=== PATIENT | female | born 1940 | race African-American/Black ===

== ENCOUNTER 2016-08-31 18:55 | Inpatient (IN) | payer OTHER ==
[~2016-08-31] VITALS: Ht 157.5 cm; Wt 105.2 kg
[~2016-08-31 18:55] MED LIST: ALB5IS NEB; ASPI81TA13 PO; CAR3125T PO; CLOP75TA28 PO; FURO20TA PO; Ipratropium Bromide NEB; LIS10T PO; METF-312 PO; NITR0.4S29 SL; SIMV-8 PO; SPIR25TA89 PO
[2016-08-31] MEDS ORDERED: ACETAMINOPHEN 500 MG TAB PO PRN (20:00)
[2016-08-31] MEDS ORDERED: DEXTROSE (50%) 50ML SYRG IV PRN (20:00)
[2016-08-31] MEDS ORDERED: NITROGLYCERIN 0.4 MG SL TAB SL PRN (20:00)
[2016-08-31] MEDS ORDERED: HYDROcodone-ACET 5/325MG TAB PO PRN (20:00)
[2016-08-31] MEDS ORDERED: LORazepam 2MG/ML-1ML VIAL IV PRN (20:00)
[2016-08-31] MEDS ORDERED: PROMETHAZINE W/CODEINE 5 ML ORAL SYRUP PO PRN (20:00)
[2016-08-31] MEDS ORDERED: ENOXAPARIN SOD 40 MG/0.4 ML SYRINGE SC ONE (20:00)
[2016-08-31] MEDS ORDERED: MORPHINE SULF INJ 2 MG/ML SYRINGE 1ML IV PRN ×2 (20:00)
[2016-08-31] MEDS ORDERED: PROMETHAZINE HCL 25 MG/ML 1ML IV PRN (20:00)
[2016-08-31] MEDS ORDERED: ASPirin 81 mg TAB PO ONE (20:15)
[2016-08-31 22:00] VITALS: BP 156/78
[2016-08-31] MEDS: InsuLIN REG 1unit/0.01ml Soln (100units/ml) SC SCH (22:00)
[2016-08-31] MEDS: ATORVASTATIN 20 MG TAB PO SCH (22:11)
[2016-08-31] MEDS: ACCU-CHEK COMFORT CURVE STRIP VI SCH (22:11)
[2016-08-31] MEDS: CARVEDILOL 12.5 MG TAB PO SCH (22:11)
[2016-08-31] MEDS: TEMAZEPAM 15 MG CAP PO PRN (23:25)
[2016-08-31 23:33] VITALS: BP 167/79
[2016-09-01 05:03] VITALS: BP 142/70
[2016-09-01 05:55] LABS: Basophils # (auto) 0 uL; Basophils % (auto) 0.4 % (0.0-2.0); Eosinophils # (auto) 0.1 uL; Eosinophils % (auto) 2.3 % (0.0-7.0); Hematocrit 37.9 % (36.0-46.0); Hemoglobin 12.3 g/dL (12.2-16.2); Lymphocytes # (auto) 2.3 uL; Lymphocytes % (auto) 42.9 % (10.0-50.0); Mean Corpuscular Hemoglobin 31.9 pg (28.0-32.0); Mean Corpuscular Hgb Conc. 32.5 g/dL (32.0-36.0); Mean Corpuscular Volume 98.1 fL (80.0-100.0); Mean Platelet Volume 10.5 fL (7.4-10.4); Monocytes # (auto) 0.5 uL; Monocytes % (auto) 8.5 % (0.0-12.0); Neutrophils # (auto) 2.4 uL; Neutrophils % (auto) 45.9 % (37.0-80.0); Platelet Count (auto) 161 10^3/uL (140-450); Red Cell Distribution Width 14.3 % (11.6-16.0); White Blood Cell 5.3 10^3/uL (4.4-10.8)
[2016-09-01] MEDS: ALBUTEROL SULF 2.5 MG/0.5ML(0.5%) NEB SOLN NEB SCH ×4 (06:00→23:40)
[2016-09-01] MEDS: IPRATROPIUM BROM 0.5 MG/2.5ML INH SOL NEB SCH ×4 (06:00→23:40)
[2016-09-01 06:41] LABS: Albumin 2.9 g/dL (3.4-5.0); BUN/Creatinine Ratio 32.1; Bilirubin, Total 0.6 mg/dL (0.2-1.0); Calcium 8.5 mg/dL (8.5-10.1)
[2016-09-01] MEDS: ACCU-CHEK COMFORT CURVE STRIP VI SCH ×4 (06:44→22:40)
[2016-09-01] MEDS: InsuLIN REG 1unit/0.01ml Soln (100units/ml) SC SCH ×4 (06:44→22:00)
[2016-09-01 09:10] VITALS: BP 127/69
[2016-09-01] MEDS: PANTOPRAZOLE 40 MG TAB PO SCH (09:23)
[2016-09-01] MEDS: LISINOPRIL 20 MG TAB PO SCH (09:24)
[2016-09-01] MEDS: CARVEDILOL 12.5 MG TAB PO SCH ×2 (09:24→22:39)
[2016-09-01] MEDS: ASPirin 81 mg TAB PO SCH (09:24)
[2016-09-01 13:00] VITALS: BP_SYST 147; BP_SYST 98; BP_DIAS 52; BP_DIAS 74
[2016-09-01 17:00] VITALS: BP 154/63
[2016-09-01] MEDS ORDERED: ENOXAPARIN SOD 40 MG/0.4 ML SYRINGE SC SCH (20:00)
[2016-09-01 22:00] VITALS: BP 144/52
[2016-09-01] MEDS: ATORVASTATIN 20 MG TAB PO SCH (22:39)
[2016-09-02 05:37] VITALS: BP 142/75
[2016-09-02] MEDS: ACCU-CHEK COMFORT CURVE STRIP VI SCH ×4 (06:34→21:46)
[2016-09-02] MEDS: InsuLIN REG 1unit/0.01ml Soln (100units/ml) SC SCH ×4 (06:35→21:46)
[2016-09-02] MEDS: ALBUTEROL SULF 2.5 MG/0.5ML(0.5%) NEB SOLN NEB SCH ×3 (07:11→18:29)
[2016-09-02] MEDS: IPRATROPIUM BROM 0.5 MG/2.5ML INH SOL NEB SCH ×3 (07:12→18:29)
[2016-09-02 08:32] VITALS: BP 161/68
[2016-09-02] MEDS: PANTOPRAZOLE 40 MG TAB PO SCH (09:57)
[2016-09-02] MEDS: ENOXAPARIN SOD 40 MG/0.4 ML SYRINGE SC SCH (09:57)
[2016-09-02] MEDS: CARVEDILOL 12.5 MG TAB PO SCH ×2 (09:57→21:11)
[2016-09-02] MEDS: LISINOPRIL 20 MG TAB PO SCH (09:57)
[2016-09-02] MEDS: ASPirin 81 mg TAB PO SCH (09:58)
[2016-09-02 12:24] VITALS: BP 136/50
[2016-09-02 16:18] VITALS: BP 142/90
[2016-09-02] MEDS: ATORVASTATIN 20 MG TAB PO SCH (21:11)
[2016-09-02] MEDS: TEMAZEPAM 15 MG CAP PO PRN (21:47)
[2016-09-02 22:00] VITALS: BP 183/68
[2016-09-03 05:44] VITALS: BP 141/65
[2016-09-03 05:50] LABS: Basophils # (auto) 0 uL; Basophils % (auto) 0.5 % (0.0-2.0); Eosinophils # (auto) 0.1 uL; Eosinophils % (auto) 3.1 % (0.0-7.0); Hematocrit 35.2 % (36.0-46.0); Hemoglobin 11.5 g/dL (12.2-16.2); Mean Corpuscular Hemoglobin 31.8 pg (28.0-32.0); Mean Corpuscular Hgb Conc. 32.6 g/dL (32.0-36.0); Mean Corpuscular Volume 97.3 fL (80.0-100.0); Mean Platelet Volume 10.1 fL (7.4-10.4); Monocytes # (auto) 0.4 uL; Monocytes % (auto) 7.9 % (0.0-12.0); Neutrophils # (auto) 2.2 uL; Neutrophils % (auto) 46.5 % (37.0-80.0); Platelet Count (auto) 153 10^3/uL (140-450); Red Cell Distribution Width 14.2 % (11.6-16.0); White Blood Cell 4.7 10^3/uL (4.4-10.8)
[2016-09-03 06:02] LABS: INR 1.06 (0.9-1.15); Prothrombin Time 10.9 sec (9.37-12.3)
[2016-09-03 06:06] LABS: BUN/Creatinine Ratio 20.4; Calcium 8.1 mg/dL (8.5-10.1); Magnesium 2.4 mg/dL (1.6-2.6)
[2016-09-03] MEDS: ALBUTEROL SULF 2.5 MG/0.5ML(0.5%) NEB SOLN NEB SCH ×4 (06:21→18:11)
[2016-09-03] MEDS: IPRATROPIUM BROM 0.5 MG/2.5ML INH SOL NEB SCH ×4 (06:21→18:11)
[2016-09-03] MEDS: ACCU-CHEK COMFORT CURVE STRIP VI SCH ×4 (06:29→21:34)
[2016-09-03] MEDS: InsuLIN REG 1unit/0.01ml Soln (100units/ml) SC SCH ×4 (06:33→21:52)
[2016-09-03 09:10] VITALS: BP 157/70
[2016-09-03] MEDS: ENOXAPARIN SOD 40 MG/0.4 ML SYRINGE SC SCH (10:22)
[2016-09-03] MEDS: ASPirin 81 mg TAB PO SCH (10:23)
[2016-09-03] MEDS: LISINOPRIL 20 MG TAB PO SCH (10:23)
[2016-09-03] MEDS: PANTOPRAZOLE 40 MG TAB PO SCH (10:23)
[2016-09-03] MEDS: CARVEDILOL 12.5 MG TAB PO SCH ×2 (10:23→21:33)
[2016-09-03] MEDS ORDERED: LISI-646 PO ×2 (11:31→11:33)
[2016-09-03 12:18] VITALS: BP 141/66
[2016-09-03 17:21] VITALS: BP 137/95
[2016-09-03 21:08] VITALS: BP 137/95
[2016-09-03] MEDS: ATORVASTATIN 20 MG TAB PO SCH (21:34)
[2016-09-03 21:50] VITALS: BP 174/72
[2016-09-04] MEDS: ALBUTEROL SULF 2.5 MG/0.5ML(0.5%) NEB SOLN NEB SCH ×5 (00:24→23:40)
[2016-09-04] MEDS: IPRATROPIUM BROM 0.5 MG/2.5ML INH SOL NEB SCH ×5 (00:24→23:40)
[2016-09-04 05:00] VITALS: BP 143/60
[2016-09-04 06:03] LABS: Basophils # (auto) 0 uL; Basophils % (auto) 0.4 % (0.0-2.0); Eosinophils # (auto) 0.1 uL; Eosinophils % (auto) 2.8 % (0.0-7.0); Hematocrit 34.9 % (36.0-46.0); Hemoglobin 11.5 g/dL (12.2-16.2); Lymphocytes # (auto) 1.8 uL; Lymphocytes % (auto) 35.2 % (10.0-50.0); Mean Corpuscular Hemoglobin 31.9 pg (28.0-32.0); Mean Corpuscular Hgb Conc. 32.9 g/dL (32.0-36.0); Mean Platelet Volume 10.2 fL (7.4-10.4); Monocytes # (auto) 0.4 uL; Monocytes % (auto) 8.2 % (0.0-12.0); Neutrophils # (auto) 2.7 uL; Neutrophils % (auto) 53.4 % (37.0-80.0); Platelet Count (auto) 148 10^3/uL (140-450); Red Cell Distribution Width 14.2 % (11.6-16.0)
[2016-09-04] MEDS: InsuLIN REG 1unit/0.01ml Soln (100units/ml) SC SCH ×4 (06:04→22:00)
[2016-09-04] MEDS: ACCU-CHEK COMFORT CURVE STRIP VI SCH ×4 (06:04→22:00)
[2016-09-04 06:12] LABS: BUN/Creatinine Ratio 20.8; Calcium 8.2 mg/dL (8.5-10.1); Magnesium 2.5 mg/dL (1.6-2.6); Potassium 4.2 mmol/L (3.5-5.1)
[2016-09-04 06:19] LABS: INR 1.06 (0.9-1.15); Prothrombin Time 10.9 sec (9.37-12.3)
[2016-09-04 09:15] VITALS: BP 147/69
[2016-09-04] MEDS: ENOXAPARIN SOD 40 MG/0.4 ML SYRINGE SC SCH (09:56)
[2016-09-04] MEDS: PANTOPRAZOLE 40 MG TAB PO SCH (09:57)
[2016-09-04] MEDS: CARVEDILOL 12.5 MG TAB PO SCH ×2 (09:57→22:32)
[2016-09-04] MEDS: ASPirin 81 mg TAB PO SCH (09:58)
[2016-09-04] MEDS: LISINOPRIL 20 MG TAB PO SCH (09:58)
[2016-09-04 11:36] LABS: Cholesterol 141 mg/dL (<200); HDL Cholesterol 41 mg/dL (40-59); LDL Cholesterol 93 mg/dL (<100); Triglycerides 102 mg/dL (<150)
[2016-09-04 12:13] VITALS: BP 158/70
[2016-09-04 17:14] VITALS: BP 150/74
[2016-09-04] MEDS ORDERED: MUPIROCIN 2% OINT 22GM TOP SCH (21:00)
[2016-09-04 22:00] VITALS: BP 161/65
[2016-09-04] MEDS: ATORVASTATIN 20 MG TAB PO SCH (22:31)
[2016-09-04] MEDS: TEMAZEPAM 15 MG CAP PO PRN (23:18)
[2016-09-05] MEDS ORDERED: CHLORHEXIDINE 4% TOPICAL soln 473ML TOP ONE (01:00)
[2016-09-05] MEDS ORDERED: CHLORHEXIDINE 0.12% ORAL rinse 473ML MT ONE (05:00)
[2016-09-05] MEDS: ALBUTEROL SULF 2.5 MG/0.5ML(0.5%) NEB SOLN NEB SCH ×3 (05:45→19:10)
[2016-09-05] MEDS: IPRATROPIUM BROM 0.5 MG/2.5ML INH SOL NEB SCH ×3 (05:45→19:10)
[2016-09-05 05:55] LABS: Basophils # (auto) 0 uL; Basophils % (auto) 0.4 % (0.0-2.0); Eosinophils # (auto) 0.1 uL; Eosinophils % (auto) 2.1 % (0.0-7.0); Hematocrit 34.5 % (36.0-46.0); Hemoglobin 11.1 g/dL (12.2-16.2); Lymphocytes # (auto) 1.9 uL; Lymphocytes % (auto) 35.9 % (10.0-50.0); Mean Corpuscular Hemoglobin 31.6 pg (28.0-32.0); Mean Corpuscular Hgb Conc. 32.3 g/dL (32.0-36.0); Mean Corpuscular Volume 97.9 fL (80.0-100.0); Monocytes # (auto) 0.5 uL; Monocytes % (auto) 9.7 % (0.0-12.0); Neutrophils # (auto) 2.8 uL; Neutrophils % (auto) 51.9 % (37.0-80.0); Platelet Count (auto) 148 10^3/uL (140-450); White Blood Cell 5.4 10^3/uL (4.4-10.8)
[2016-09-05 05:57] VITALS: BP 136/68
[2016-09-05] MEDS ORDERED: ceFAZolin 1GM 2 GM in D5W 5% 50 ML IV ONE (06:00)
[2016-09-05] MEDS ORDERED: ACCU-CHEK COMFORT CURVE STRIP VI ONE ×2 (06:00→07:00)
[2016-09-05] MEDS ORDERED: VANCOMYCIN 1GM/250ML D5W 250 ML IV ONE (06:00)
[2016-09-05 06:04] LABS: INR 1.07 (0.9-1.15); Partial Thromboplastin Time 29.6 sec (22.64-33.71)
[2016-09-05 06:23] LABS: Calcium 8.5 mg/dL (8.5-10.1); Potassium 4.4 mmol/L (3.5-5.1)
[2016-09-05] MEDS: InsuLIN REG 1unit/0.01ml Soln (100units/ml) SC SCH ×4 (06:29→22:00)
[2016-09-05] MEDS: ACCU-CHEK COMFORT CURVE STRIP VI SCH ×4 (06:29→22:10)
[2016-09-05] MEDS ORDERED: VASOPRESSIN 50 UNITS in SODIUM CHL 0.9% 247.5 ML IV ONE (07:00)
[2016-09-05] MEDS ORDERED: InsuLIN R (HUMAN) 100 UNITS in SODIUM CHL 0.9% 99 ML IV ONE (07:00)
[2016-09-05] MEDS ORDERED: HEPARIN 30000 UNITS in SODIUM CHLORIDE 0.9% 1000 ML IV ONE (07:00)
[2016-09-05] MEDS ORDERED: EPINEPHrine HCL INJECTION 4 MG in D5W 5% 250 ML IV ONE (07:00)
[2016-09-05] MEDS ORDERED: PHENYLEPHRINE INJ 20 MG in NS 0.9% 248 ML IV ONE (07:00)
[2016-09-05] MEDS ORDERED: AMINOCAPROIC ACID 5 GM in SODIUM CHL 0.9% 250 ML IV ONE (07:00)
[2016-09-05] MEDS ORDERED: AMINOCAPROIC ACID 10 GM in SODIUM CHL 0.9% 100 ML IV ONE (07:00)
[2016-09-05 07:50] VITALS: BP 152/76
[2016-09-05] MEDS: ASPirin 81 mg TAB PO SCH (11:07)
[2016-09-05] MEDS: LISINOPRIL 20 MG TAB PO SCH (11:07)
[2016-09-05] MEDS: CARVEDILOL 12.5 MG TAB PO SCH ×2 (11:07→22:10)
[2016-09-05] MEDS: PANTOPRAZOLE 40 MG TAB PO SCH (11:07)
[2016-09-05 13:22] VITALS: BP 143/61
[2016-09-05 16:52] VITALS: BP 145/61
[2016-09-05 22:00] VITALS: BP 162/71
[2016-09-05] MEDS: ATORVASTATIN 20 MG TAB PO SCH (22:09)
[2016-09-05] MEDS: TEMAZEPAM 15 MG CAP PO PRN (22:24)
[2016-09-06 05:13] VITALS: BP 155/81
[2016-09-06] MEDS: InsuLIN REG 1unit/0.01ml Soln (100units/ml) SC SCH ×4 (06:10→21:33)
[2016-09-06] MEDS: ACCU-CHEK COMFORT CURVE STRIP VI SCH ×4 (06:10→21:32)
[2016-09-06] MEDS: IPRATROPIUM BROM 0.5 MG/2.5ML INH SOL NEB SCH ×5 (06:50→23:43)
[2016-09-06] MEDS: ALBUTEROL SULF 2.5 MG/0.5ML(0.5%) NEB SOLN NEB SCH ×5 (06:50→23:43)
[2016-09-06 09:00] VITALS: BP 149/73
[2016-09-06] MEDS: ASPirin 81 mg TAB PO SCH (10:04)
[2016-09-06] MEDS: LISINOPRIL 20 MG TAB PO SCH (10:05)
[2016-09-06] MEDS: PANTOPRAZOLE 40 MG TAB PO SCH (10:05)
[2016-09-06] MEDS: CARVEDILOL 12.5 MG TAB PO SCH ×2 (10:06→21:32)
[2016-09-06 13:00] VITALS: BP 142/70
[2016-09-06 16:55] VITALS: BP 177/85
[2016-09-06] MEDS: cloNIDine HCL 0.1 MG TAB PO PRN (17:47)
[2016-09-06 18:00] VITALS: BP 142/70
[2016-09-06] MEDS: ATORVASTATIN 20 MG TAB PO SCH (21:31)
[2016-09-06] MEDS: TEMAZEPAM 15 MG CAP PO PRN (21:31)
[2016-09-06 22:00] VITALS: BP 150/71
[2016-09-07] MEDS: IPRATROPIUM BROM 0.5 MG/2.5ML INH SOL NEB SCH ×5 (00:14→23:53)
[2016-09-07] MEDS: ALBUTEROL SULF 2.5 MG/0.5ML(0.5%) NEB SOLN NEB SCH ×5 (00:14→23:54)
[2016-09-07 00:20] VITALS: BP 142/70
[2016-09-07 05:00] VITALS: BP 148/75
[2016-09-07] MEDS: ACCU-CHEK COMFORT CURVE STRIP VI SCH ×4 (06:11→21:53)
[2016-09-07] MEDS: InsuLIN REG 1unit/0.01ml Soln (100units/ml) SC SCH ×4 (06:11→21:53)
[2016-09-07 07:14] LABS: Urine Bilirubin Negative (Negative); Urine Blood Negative /uL (Negative); Urine Color Yellow (Yellow); Urine Glucose Normal (Normal); Urine Ketone Negative (Negative); Urine Mucus FEW (None Seen); Urine Nitrite Negative (Negative); Urine RBC 18 /hpf (0 - 4); Urine Squamous Epithelial Cell MOD /hpf (<5); Urine Urobilinogen Normal (Negative); Urine WBC Clumps PRESENT /hpf (None Seen)
[2016-09-07] MEDS ORDERED: IODIXANOL 320MG/ML 100ML BTL IV ONE (08:24)
[2016-09-07] MEDS ORDERED: HEPARIN IN NS 1000Units/500mL 0 ML ONE (08:25)
[2016-09-07] MEDS ORDERED: LIDOCAINE 2%HCL (LOCAL ANESTH.) INJ 20ML MDV ONE (08:25)
[2016-09-07] MEDS ORDERED: fentaNYL CITRATE 100 MCG/2 ML VL ONE (08:31)
[2016-09-07] MEDS ORDERED: ANGIOMAX 250 MG VIAL IV ONE ×2 (08:31→09:07)
[2016-09-07] MEDS ORDERED: MIDAZOLAM HCL 1MG/1ML-2 ML VIAL ONE (08:32)
[2016-09-07] MEDS ORDERED: SODIUM CHL 0.9% 50 ML ONE ×2 (08:32→09:07)
[2016-09-07] MEDS ORDERED: EPTIFIBATIDE INJ (2MG/ML) 10ML VIAL IV ONE (08:36)
[2016-09-07] MEDS ORDERED: IOHEXOL 350 MG/ML 100ML IJ ONE (09:06)
[2016-09-07] MEDS ORDERED: PRASUGREL HCL 10 MG TAB ONE (09:11)
[2016-09-07] MEDS ORDERED: SODIUM CHLORIDE 0.9% 1,000 ML IV SCH (09:17)
[2016-09-07] MEDS ORDERED: PRASUGREL HCL 10 MG TAB PO ONE (09:30)
[2016-09-07] MEDS: LISINOPRIL 20 MG TAB PO SCH (11:04)
[2016-09-07] MEDS: PANTOPRAZOLE 40 MG TAB PO SCH (11:04)
[2016-09-07] MEDS: CARVEDILOL 12.5 MG TAB PO SCH ×2 (11:05→21:53)
[2016-09-07] MEDS: ASPirin 81 mg TAB PO SCH (11:05)
[2016-09-07] MEDS: cloNIDine HCL 0.1 MG TAB PO PRN ×2 (12:28→23:11)
[2016-09-07 13:00] VITALS: BP 180/89
[2016-09-07 16:43] VITALS: BP 158/65
[2016-09-07] MEDS: ATORVASTATIN 20 MG TAB PO SCH (21:45)
[2016-09-07 22:00] VITALS: BP 178/73
[2016-09-07 23:13] VITALS: BP 170/63
[2016-09-08 05:01] VITALS: BP 148/69
[2016-09-08 05:53] LABS: Basophils # (auto) 0 uL; Basophils % (auto) 0.5 % (0.0-2.0); Eosinophils # (auto) 0.1 uL; Eosinophils % (auto) 2.1 % (0.0-7.0); Hematocrit 34.4 % (36.0-46.0); Hemoglobin 11.3 g/dL (12.2-16.2); Lymphocytes # (auto) 1.3 uL; Lymphocytes % (auto) 23.4 % (10.0-50.0); Mean Corpuscular Hemoglobin 31.9 pg (28.0-32.0); Mean Corpuscular Hgb Conc. 32.9 g/dL (32.0-36.0); Monocytes # (auto) 0.4 uL; Monocytes % (auto) 6.8 % (0.0-12.0); Neutrophils # (auto) 3.7 uL; Neutrophils % (auto) 67.2 % (37.0-80.0); Platelet Count (auto) 154 10^3/uL (140-450); Red Cell Distribution Width 13.8 % (11.6-16.0); White Blood Cell 5.5 10^3/uL (4.4-10.8)
[2016-09-08 06:10] LABS: Potassium 4.1 mmol/L (3.5-5.1)
[2016-09-08 06:16] LABS: BUN/Creatinine Ratio 22.4; Calcium 8.1 mg/dL (8.5-10.1)
[2016-09-08] MEDS: InsuLIN REG 1unit/0.01ml Soln (100units/ml) SC SCH ×2 (06:34→11:30)
[2016-09-08] MEDS: ACCU-CHEK COMFORT CURVE STRIP VI SCH ×2 (06:34→11:30)
[2016-09-08] MEDS: IPRATROPIUM BROM 0.5 MG/2.5ML INH SOL NEB SCH (08:00)
[2016-09-08] MEDS: ALBUTEROL SULF 2.5 MG/0.5ML(0.5%) NEB SOLN NEB SCH (08:00)
[2016-09-08 09:00] VITALS: BP 123/62
[2016-09-08] MEDS ORDERED: HYDROcodone-ACET 5/325MG TAB PO PRN (09:45)
[2016-09-08] MEDS ORDERED: PROMETHAZINE W/CODEINE 5 ML ORAL SYRUP PO PRN (09:45)
[2016-09-08] MEDS ORDERED: TEMAZEPAM 15 MG CAP PO PRN (09:45)
[2016-09-08] MEDS ORDERED: MORPHINE SULF INJ 2 MG/ML SYRINGE 1ML IV PRN ×2 (09:45)
[2016-09-08] MEDS ORDERED: LORazepam 2MG/ML-1ML VIAL IV PRN (09:45)
[2016-09-08] MEDS: PANTOPRAZOLE 40 MG TAB PO SCH (09:57)
[2016-09-08] MEDS: ASPirin 81 mg TAB PO SCH (09:57)
[2016-09-08] MEDS: LISINOPRIL 20 MG TAB PO SCH (09:58)
[2016-09-08] MEDS: CARVEDILOL 12.5 MG TAB PO SCH (09:59)
[2016-09-08] MEDS ORDERED: PRASUGREL HCL 10 MG TAB PO SCH (10:00)
[2016-09-08 10:25] VITALS: BP 123/62
[2016-09-08 13:00] VITALS: BP 147/84
== END 2016-09-08 14:16 | disposition home or self-care (01) | DRG 247 ==
LOC: TELE-CENTR 18:55
PROVIDERS: ADMIT Family Medicine; ATTEND Internal Medicine
PROC: 027135Z Dilation of Coronary Artery, Two Arteries with Two Drug-eluting Intraluminal Devices, Percutaneous Approach (ICD-10-PCS; principal; 2016-09-07)
DX: I21.4 Non-ST elevation (NSTEMI) myocardial infarction (principal); I50.22 Chronic systolic (congestive) heart failure; I13.0 Hypertensive heart and chronic kidney disease with heart failure and stage 1 through stage 4 chronic kidney disease, or unspecified chronic kidney disease; Z68.41 Body mass index [BMI] 40.0-44.9, adult; I42.0 Dilated cardiomyopathy; I25.10 Atherosclerotic heart disease of native coronary artery without angina pectoris; M19.90 Unspecified osteoarthritis, unspecified site; E78.00 Pure hypercholesterolemia, unspecified; E11.22 Type 2 diabetes mellitus with diabetic chronic kidney disease; E66.01 Morbid (severe) obesity due to excess calories; J98.4 Other disorders of lung; E78.5 Hyperlipidemia, unspecified; N18.2 Chronic kidney disease, stage 2 (mild); J45.909 Unspecified asthma, uncomplicated; R79.1 Abnormal coagulation profile; T45.525A Adverse effect of antithrombotic drugs, initial encounter; Z82.49 Family history of ischemic heart disease and other diseases of the circulatory system; Z79.82 Long term (current) use of aspirin; Z79.4 Long term (current) use of insulin; Z79.899 Other long term (current) drug therapy; Z95.0 Presence of cardiac pacemaker
CPT/HCPCS: 36415; 36600; 71010; 80048; 80053; 80061; 81001; 82550; 82805; 82962; 83036; 83735; 84484; 85025; 85049; 85576; 85610; 85730; 86850; 86900; 86901; 86920; 87081; 92928; 93005; 93306; 93886; 93970; 94010; 94640; 99152; C1874; J0171; J0690; J1644; J1815; J2250; J3490; J7060; Q9967

== ENCOUNTER → 2016-11-14 | Outpatient (CLI) | payer OTHER, MEDICAID ==
[~2016-11-14] MED LIST changes: -LIS10T PO; +LISI-646 PO; -METF-312 PO; +METF-316 PO; +PRAS10TA6 PO; +SIMV-13 PO; -SIMV-8 PO
== END | disposition home or self-care (01) ==
LOC: Rad HDHVI 13:18
PROVIDERS: ATTEND Internal Medicine Cardiovascular Disease
DX: I08.3 Combined rheumatic disorders of mitral, aortic and tricuspid valves (principal); I70.8 Atherosclerosis of other arteries; I31.3 Pericardial effusion (noninflammatory); I25.10 Atherosclerotic heart disease of native coronary artery without angina pectoris; I10 Essential (primary) hypertension; Z95.5 Presence of coronary angioplasty implant and graft; E78.00 Pure hypercholesterolemia, unspecified; R06.02 Shortness of breath; Z95.820 Peripheral vascular angioplasty status with implants and grafts
CPT/HCPCS: 93306

== ENCOUNTER → 2016-12-26 | Outpatient (CLI) | payer OTHER, MEDICAID ==
[~2016-12-26] MED LIST changes: +ADENOSINE 90 MG in GIVE UN-DILUTED 0 ML IV ONE; +ADENOSINE 90 MG/30 ML INJ IV ONE
== END | disposition home or self-care (01) ==
LOC: Rad HDHVI 08:03
PROVIDERS: ATTEND Internal Medicine Cardiovascular Disease
DX: I11.0 Hypertensive heart disease with heart failure (principal); I50.43 Acute on chronic combined systolic (congestive) and diastolic (congestive) heart failure; I25.10 Atherosclerotic heart disease of native coronary artery without angina pectoris; I21.4 Non-ST elevation (NSTEMI) myocardial infarction; E78.00 Pure hypercholesterolemia, unspecified
CPT/HCPCS: 78452; 93005; 96374; 96375; A9500; J0153

== ENCOUNTER → 2017-05-23 | Outpatient (CLI) | payer OTHER, MEDICAID, MEDICARE ==
[~2017-05-23] MED LIST changes: -ADENOSINE 90 MG in GIVE UN-DILUTED 0 ML IV ONE; -ADENOSINE 90 MG/30 ML INJ IV ONE; -METF-316 PO; +METF-372 PO
[2017-05-23 14:47] LABS: Basophils # (auto) 0 uL; Basophils % (auto) 0.5 % (0.0-2.0); Eosinophils # (auto) 0.1 uL; Hematocrit 37.6 % (36.0-46.0); Hemoglobin 12.4 g/dL (12.2-16.2); Lymphocytes # (auto) 1.7 uL; Lymphocytes % (auto) 32.8 % (10.0-50.0); Mean Corpuscular Hemoglobin 31.3 pg (28.0-32.0); Mean Corpuscular Hgb Conc. 33.1 g/dL (32.0-36.0); Mean Corpuscular Volume 94.7 fL (80.0-100.0); Monocytes # (auto) 0.3 uL; Monocytes % (auto) 6.6 % (0.0-12.0); Neutrophils # (auto) 2.9 uL; Neutrophils % (auto) 58.1 % (37.0-80.0); Nucleated Red Blood Cells % 0.1 %; Platelet Count (auto) 164 10^3/uL (140-450); Red Cell Distribution Width 15.3 % (11.8-14.3); White Blood Cell 5.1 10^3/uL (4.4-10.8)
[2017-05-23 15:22] LABS: Albumin 3.1 g/dL (3.4-5.0); BUN/Creatinine Ratio 18.8; Bilirubin, Total 0.4 mg/dL (0.2-1.0); Calcium 8.1 mg/dL (8.5-10.1); Potassium 3.6 mmol/L (3.5-5.1)
== END | disposition home or self-care (01) ==
LOC: LAB 14:29
PROVIDERS: ATTEND Internal Medicine
DX: E11.9 Type 2 diabetes mellitus without complications (principal); I11.0 Hypertensive heart disease with heart failure; I50.9 Heart failure, unspecified
CPT/HCPCS: 36415; 80053; 82607; 83036; 85025

== ENCOUNTER → 2017-12-03 | Outpatient (CLI) | payer OTHER, MEDICAID, MEDICARE | END | disposition home or self-care (01) | LOC: Rad HDHVI 13:14 | PROVIDERS: ATTEND Internal Medicine Cardiovascular Disease | DX: I08.3 Combined rheumatic disorders of mitral, aortic and tricuspid valves (principal); I20.0 Unstable angina; I25.5 Ischemic cardiomyopathy; I12.9 Hypertensive chronic kidney disease with stage 1 through stage 4 chronic kidney disease, or unspecified chronic kidney disease; E11.22 Type 2 diabetes mellitus with diabetic chronic kidney disease; N18.2 Chronic kidney disease, stage 2 (mild); E78.00 Pure hypercholesterolemia, unspecified; Z79.82 Long term (current) use of aspirin; Z79.899 Other long term (current) drug therapy; Z79.4 Long term (current) use of insulin | CPT/HCPCS: 93306 ==

== ENCOUNTER 2018-03-19 09:09 | Inpatient (IN) | payer OTHER, MEDICAID ==
[~2018-03-19] VITALS: Ht 157.5 cm; Wt 99.0 kg
[2018-03-19 09:58] LABS: Basophils # (auto) 0 uL; Basophils % (auto) 0.9 % (0.0-2.0); Eosinophils # (auto) 0.1 uL; Eosinophils % (auto) 2.6 % (0.0-7.0); Hematocrit 38.4 % (36.0-46.0); Hemoglobin 12.7 g/dL (12.2-16.2); Lymphocytes # (auto) 1.3 uL; Lymphocytes % (auto) 31.9 % (10.0-50.0); Mean Corpuscular Hemoglobin 32.7 pg (28.0-32.0); Monocytes # (auto) 0.3 uL; Monocytes % (auto) 6.5 % (0.0-12.0); Neutrophils # (auto) 2.3 uL; Neutrophils % (auto) 58.1 % (37.0-80.0); Nucleated Red Blood Cells % 0.1 %; Platelet Count (auto) 138 10^3/uL (140-450); Red Blood Cells 3.88 10^6/uL (4.0-5.20); Red Cell Distribution Width 14.4 % (11.8-14.3)
[2018-03-19] MEDS ORDERED: FUROSEMIDE 20 MG/2 ML VIAL IV ONE (10:00)
[2018-03-19 10:24] LABS: Albumin 2.9 g/dL (3.4-5.0); BUN/Creatinine Ratio 24.5; Bilirubin, Total 0.5 mg/dL (0.2-1.0); Calcium 7.6 mg/dL (8.5-10.1); Magnesium 2.7 mg/dL (1.6-2.6); Total Protein 6.4 g/dL (6.4-8.2)
[2018-03-19 11:50] LABS: Urine WBC None Seen /hpf (0 - 5)
[2018-03-19 12:25] LABS: Urine Bacteria FEW /hpf (None Seen); Urine Blood Negative /uL (Negative); Urine Mucus FEW (None Seen); Urine Specific Gravity 1.006 (1.001-1.035)
[2018-03-19] MEDS ORDERED: MORPHINE SULFATE 4 MG/ML SYR/VIAL IV PRN (13:00)
[2018-03-19] MEDS ORDERED: FUROSEMIDE 40 MG/4 ML VIAL IV ONE (13:00)
[2018-03-19] MEDS ORDERED: POTASSIUM CHL 20 Meq TABLET PO ONE (13:00)
[2018-03-19] MEDS ORDERED: CARVEDILOL 12.5 MG TAB PO ONE (13:00)
[2018-03-19] MEDS ORDERED: LISINOPRIL 10 MG TAB PO ONE (13:00)
[2018-03-19] MEDS ORDERED: DEXTROSE (50%) 50ML SYRG IV PRN (13:00)
[2018-03-19] MEDS ORDERED: NITROGLYCERIN 0.4 MG SL TAB SL PRN (13:00)
[2018-03-19 15:35] VITALS: BP 144/88
[2018-03-19] MEDS: InsuLIN REG 1unit/0.01ml Soln (100units/ml) SC SCH ×2 (17:00→21:31)
[2018-03-19] MEDS: ACCU-CHEK COMFORT CURVE STRIP VI SCH ×2 (17:00→21:31)
[2018-03-19 19:37] VITALS: BP 148/59
[2018-03-19] MEDS ORDERED: ENOXAPARIN SOD 100 MG/1 ML SYRINGE SC ONE (20:30)
[2018-03-19] MEDS: ATORVASTATIN 20 MG TAB PO SCH (21:29)
[2018-03-19] MEDS: CARVEDILOL 12.5 MG TAB PO SCH (21:37)
[2018-03-19 22:00] VITALS: BP 154/62
[2018-03-20] VITALS (7 sets, daily range): BP systolic 137–159; BP diastolic 59–78
[2018-03-20] MEDS: InsuLIN REG 1unit/0.01ml Soln (100units/ml) SC SCH ×4 (05:55→22:00)
[2018-03-20] MEDS: ACCU-CHEK COMFORT CURVE STRIP VI SCH ×4 (05:56→22:10)
[2018-03-20 07:48] LABS: Basophils # (auto) 0 uL; Basophils % (auto) 0.6 % (0.0-2.0); Eosinophils # (auto) 0.1 uL; Eosinophils % (auto) 3.3 % (0.0-7.0); Hematocrit 38.1 % (36.0-46.0); Hemoglobin 12.7 g/dL (12.2-16.2); Lymphocytes # (auto) 2.1 uL; Lymphocytes % (auto) 49.7 % (10.0-50.0); Mean Corpuscular Hgb Conc. 33.3 g/dL (32.0-36.0); Mean Corpuscular Volume 99.2 fL (80.0-100.0); Monocytes # (auto) 0.3 uL; Monocytes % (auto) 8.1 % (0.0-12.0); Neutrophils # (auto) 1.6 uL; Neutrophils % (auto) 38.3 % (37.0-80.0); Nucleated Red Blood Cells % 0.1 %; Platelet Count (auto) 121 10^3/uL (140-450); Red Blood Cells 3.84 10^6/uL (4.0-5.20); Red Cell Distribution Width 14.3 % (11.8-14.3); White Blood Cell 4.2 10^3/uL (4.4-10.8)
[2018-03-20 07:58] LABS: INR 1.01 (0.9-1.15); Prothrombin Time 10.8 sec (9.27-12.13)
[2018-03-20 08:03] LABS: BUN/Creatinine Ratio 23.2; Calcium 8.1 mg/dL (8.5-10.1); Potassium 4.4 mmol/L (3.5-5.1)
[2018-03-20] MEDS: POTASSIUM CHL 20 Meq TABLET PO SCH (09:15)
[2018-03-20] MEDS: CARVEDILOL 12.5 MG TAB PO SCH ×2 (09:15→22:10)
[2018-03-20] MEDS: FUROSEMIDE 40 MG/4 ML VIAL IV SCH (09:17)
[2018-03-20] MEDS: ASPirin 81 mg TAB PO SCH (09:18)
[2018-03-20] MEDS ORDERED: LISINOPRIL 10 MG TAB PO SCH (10:00)
[2018-03-20] MEDS ORDERED: ENOXAPARIN SOD 100 MG/1 ML SYRINGE SC ONE (10:15)
[2018-03-20] MEDS ORDERED: DOCUSATE SOD 100 MG CAP PO ONE (11:15)
[2018-03-20] MEDS: ATORVASTATIN 20 MG TAB PO SCH (22:10)
[2018-03-20] MEDS: DOCUSATE SOD 100 MG CAP PO SCH (22:10)
[2018-03-21 05:00] VITALS: BP 115/49
[2018-03-21] MEDS: InsuLIN REG 1unit/0.01ml Soln (100units/ml) SC SCH ×4 (06:28→21:22)
[2018-03-21] MEDS: ACCU-CHEK COMFORT CURVE STRIP VI SCH ×4 (06:28→21:17)
[2018-03-21 06:40] LABS: Basophils # (auto) 0 uL; Basophils % (auto) 0.5 % (0.0-2.0); Eosinophils # (auto) 0.1 uL; Eosinophils % (auto) 2.1 % (0.0-7.0); Hematocrit 41.3 % (36.0-46.0); Lymphocytes # (auto) 1.7 uL; Lymphocytes % (auto) 43.3 % (10.0-50.0); Mean Corpuscular Hemoglobin 33.5 pg (28.0-32.0); Mean Corpuscular Volume 98.6 fL (80.0-100.0); Monocytes # (auto) 0.3 uL; Monocytes % (auto) 7.9 % (0.0-12.0); Neutrophils # (auto) 1.8 uL; Neutrophils % (auto) 46.2 % (37.0-80.0); Platelet Count (auto) 136 10^3/uL (140-450); Red Blood Cells 4.19 10^6/uL (4.0-5.20); Red Cell Distribution Width 14.3 % (11.8-14.3); White Blood Cell 3.9 10^3/uL (4.4-10.8)
[2018-03-21 06:58] LABS: BUN/Creatinine Ratio 26.8; Potassium 4.5 mmol/L (3.5-5.1)
[2018-03-21 08:00] VITALS: BP_SYST 156; BP_SYST 157; BP_DIAS 69; BP_DIAS 77
[2018-03-21] MEDS: LISINOPRIL 10 MG TAB PO SCH (08:20)
[2018-03-21] MEDS: CARVEDILOL 12.5 MG TAB PO SCH ×2 (08:21→21:12)
[2018-03-21] MEDS: POTASSIUM CHL 20 Meq TABLET PO SCH (08:21)
[2018-03-21] MEDS: DOCUSATE SOD 100 MG CAP PO SCH ×2 (08:22→21:12)
[2018-03-21] MEDS: FUROSEMIDE 40 MG/4 ML VIAL IV SCH (08:26)
[2018-03-21] MEDS: ASPirin 81 mg TAB PO SCH (10:00)
[2018-03-21] MEDS ORDERED: LIDOCAINE 2% (LOCAL ANESTH.) PF 5ml SDV ONE (13:47)
[2018-03-21] MEDS ORDERED: IOHEXOL 350 MG/ML 100ML IJ ONE ×2 (13:48→15:03)
[2018-03-21] MEDS ORDERED: MIDAZOLAM HCL 1MG/1ML-2 ML VIAL ONE (14:01)
[2018-03-21] MEDS ORDERED: SODIUM CHL 0.9% 50 ML ONE ×2 (14:01→15:07)
[2018-03-21] MEDS ORDERED: ANGIOMAX 250 MG VIAL IV ONE ×2 (14:01→15:06)
[2018-03-21] MEDS ORDERED: fentaNYL CITRATE 100 MCG/2 ML VL ONE (14:01)
[2018-03-21] MEDS ORDERED: ATROPINE SULF 1 MG/10ml SYR ONE (14:36)
[2018-03-21] MEDS ORDERED: EPINEPHrine HCL 1 MG/10 ML SYRG ONE (14:36)
[2018-03-21] MEDS ORDERED: CLOPIDOGREL 300 MG TAB ONE (15:18)
[2018-03-21 17:00] VITALS: BP 145/81
[2018-03-21] MEDS: ATORVASTATIN 20 MG TAB PO SCH (21:13)
[2018-03-21 21:30] VITALS: BP 132/65
[2018-03-21] MEDS ORDERED: TEMAZEPAM 15 MG CAP PO PRN (22:30)
[2018-03-22 05:00] VITALS: BP_SYST 113; BP_SYST 163; BP_DIAS 70; BP_DIAS 91
[2018-03-22] MEDS: ACCU-CHEK COMFORT CURVE STRIP VI SCH ×3 (06:35→17:00)
[2018-03-22] MEDS: InsuLIN REG 1unit/0.01ml Soln (100units/ml) SC SCH ×3 (06:35→17:00)
[2018-03-22 08:00] VITALS: BP 139/60
[2018-03-22 08:01] VITALS: BP 146/71
[2018-03-22] MEDS: LISINOPRIL 10 MG TAB PO SCH (09:48)
[2018-03-22] MEDS: CARVEDILOL 12.5 MG TAB PO SCH (09:48)
[2018-03-22] MEDS: DOCUSATE SOD 100 MG CAP PO SCH (09:49)
[2018-03-22] MEDS: POTASSIUM CHL 20 Meq TABLET PO SCH (09:49)
[2018-03-22] MEDS: ASPirin 81 mg TAB PO SCH (09:49)
[2018-03-22] MEDS ORDERED: CLOPIDOGREL BISULFATE 75 MG TAB PO SCH (10:00)
[2018-03-22] MEDS ORDERED: FUROSEMIDE 40 MG TAB PO SCH (10:00)
[2018-03-22 12:00] VITALS: BP 130/66
[2018-03-22] MEDS ORDERED: ACETAMINOPHEN 325 MG TAB PO PRN (14:15)
[2018-03-22 16:26] VITALS: BP 133/64
[2018-03-22 20:00] VITALS: BP 130/66
== END 2018-03-22 21:15 | disposition home or self-care (01) | DRG 246 ==
LOC: EDBD 09:09 → ER 09:09 → TELE 09:10 → TELE-EAST 15:49
PROVIDERS: ADMIT Internal Medicine; ATTEND Internal Medicine
PROC: 4A023N7 Measurement of Cardiac Sampling and Pressure, Left Heart, Percutaneous Approach (ICD-10-PCS; principal; 2018-03-21)
PROC: 027035Z Dilation of Coronary Artery, One Artery with Two Drug-eluting Intraluminal Devices, Percutaneous Approach (ICD-10-PCS; 2018-03-21)
PROC: B2111ZZ Fluoroscopy of Multiple Coronary Arteries using Low Osmolar Contrast (ICD-10-PCS; 2018-03-21)
PROC: B2151ZZ Fluoroscopy of Left Heart using Low Osmolar Contrast (ICD-10-PCS; 2018-03-21)
DX: I21.4 Non-ST elevation (NSTEMI) myocardial infarction (principal); I50.43 Acute on chronic combined systolic (congestive) and diastolic (congestive) heart failure; E11.9 Type 2 diabetes mellitus without complications; E66.01 Morbid (severe) obesity due to excess calories; E78.5 Hyperlipidemia, unspecified; D69.6 Thrombocytopenia, unspecified; I25.119 Atherosclerotic heart disease of native coronary artery with unspecified angina pectoris; I11.0 Hypertensive heart disease with heart failure; I25.5 Ischemic cardiomyopathy; Z82.49 Family history of ischemic heart disease and other diseases of the circulatory system; Z95.5 Presence of coronary angioplasty implant and graft; Z95.0 Presence of cardiac pacemaker; Z68.39 Body mass index [BMI] 39.0-39.9, adult
CPT/HCPCS: 36415; 71045; 80048; 80053; 81001; 82962; 83036; 83735; 83880; 84484; 85025; 85610; 85730; 86850; 86900; 86901; 92928; 93005; 93306; 93458; 94761; 96372; 96374; 99152; A6257; C1874; C1887; J2001; J2250

== ENCOUNTER → 2018-07-15 | Outpatient (CLI) | payer OTHER, MEDICAID ==
[~2018-07-15] MED LIST changes: +ASPI1TAB19 PO; -ASPI81TA13 PO; +SPIR25TA8 PO; -SPIR25TA89 PO
== END | disposition home or self-care (01) ==
LOC: Rad HDHVI 15:58
PROVIDERS: ATTEND Internal Medicine Cardiovascular Disease
DX: I08.3 Combined rheumatic disorders of mitral, aortic and tricuspid valves (principal); I25.5 Ischemic cardiomyopathy; I27.20 Pulmonary hypertension, unspecified
CPT/HCPCS: 93306

== ENCOUNTER 2018-08-26 09:43 | Inpatient (IN) | payer OTHER, MEDICAID ==
[~2018-08-26] VITALS: Ht 172.7 cm; Wt 100.0 kg
[2018-08-26] MEDS ORDERED: ASPirin 81 mg TAB PO ONE (10:15)
[2018-08-26 10:36] LABS: Basophils # (auto) 0 uL; Basophils % (auto) 0.6 % (0.0-2.0); Eosinophils # (auto) 0.1 uL; Eosinophils % (auto) 2.6 % (0.0-7.0); Hemoglobin 13.9 g/dL (12.2-16.2); Lymphocytes # (auto) 1.2 uL; Lymphocytes % (auto) 23.4 % (10.0-50.0); Mean Corpuscular Hgb Conc. 33.2 g/dL (32.0-36.0); Mean Corpuscular Volume 99.4 fL (80.0-100.0); Monocytes # (auto) 0.4 uL; Monocytes % (auto) 7.1 % (0.0-12.0); Neutrophils # (auto) 3.3 uL; Neutrophils % (auto) 66.3 % (37.0-80.0); Nucleated Red Blood Cells % 0.1 %; Platelet Count (auto) 130 10^3/uL (140-450); Red Blood Cells 4.23 10^6/uL (4.0-5.20); Red Cell Distribution Width 13.8 % (11.8-14.3)
[2018-08-26 10:51] LABS: Partial Thromboplastin Time 29.3 sec (23.78-33.04); Prothrombin Time 10.7 sec (9.27-12.13)
[2018-08-26] MEDS ORDERED: cloNIDine HCL 0.1 MG TAB ONE (10:52)
[2018-08-26 10:54] LABS: Albumin 3.1 g/dL (3.4-5.0); BUN/Creatinine Ratio 19.8; Calcium 8.2 mg/dL (8.5-10.1); Potassium 4.6 mmol/L (3.5-5.1)
[2018-08-26 10:58] LABS: Bilirubin, Total 0.5 mg/dL (0.2-1.0); Total Protein 6.8 g/dL (6.4-8.2)
[2018-08-26] MEDS ORDERED: cloNIDine HCL 0.1 MG TAB PO ONE (11:00)
[2018-08-26 11:30] LABS: Urine Bacteria MANY /hpf (None Seen); Urine Blood Negative /uL (Negative); Urine Mucus FEW (None Seen); Urine Specific Gravity 1.029 (1.001-1.035); Urine WBC 7 /hpf (0 - 5)
[2018-08-26] MEDS ORDERED: NITROGLYCERIN 0.4 MG SL TAB SL PRN (11:30)
[2018-08-26] MEDS ORDERED: MORPHINE SULFATE 10 MG/ML INJ 1ML SDV IV PRN (11:30)
[2018-08-26] MEDS ORDERED: NITROGLYCERIN 0.4MG/HR TOPICAL PATCH TD ONE (11:30)
[2018-08-26] MEDS ORDERED: CARVEDILOL 3.125 MG TAB PO ONE (11:45)
[2018-08-26] MEDS ORDERED: FUROSEMIDE 20 MG TAB PO ONE (11:45)
[2018-08-26] MEDS ORDERED: CLOPIDOGREL BISULFATE 75 MG TAB PO ONE (11:45)
[2018-08-26] MEDS ORDERED: SPIRONOLACTONE 25 MG TAB PO ONE (11:45)
[2018-08-26] MEDS: ENOXAPARIN SOD 100 MG/1 ML SYRINGE SC SCH ×2 (11:45→22:00)
[2018-08-26] MEDS ORDERED: LISINOPRIL 20 MG TAB PO ONE (11:45)
[2018-08-26] MEDS: ALBUTEROL SULF 2.5 MG/0.5ML(0.5%) NEB SOLN NEB SCH ×2 (12:25→19:28)
[2018-08-26 14:03] VITALS: BP 167/77
[2018-08-26] MEDS ORDERED: LIDOCAINE 2%HCL (LOCAL ANESTH.) INJ 20ML MDV ONE (14:40)
[2018-08-26] MEDS ORDERED: IOHEXOL 350 MG/ML 100ML IJ ONE (14:41)
[2018-08-26] MEDS ORDERED: fentaNYL CITRATE 100 MCG/2 ML VL ONE (15:00)
[2018-08-26] MEDS ORDERED: SODIUM CHL 0.9% 50 ML ONE (15:00)
[2018-08-26] MEDS ORDERED: ANGIOMAX 250 MG VIAL IV ONE (15:00)
[2018-08-26] MEDS ORDERED: MIDAZOLAM HCL 1MG/1ML-2 ML VIAL ONE (15:00)
[2018-08-26] MEDS ORDERED: IODIXANOL 320MG/ML 100ML BTL IV ONE (15:11)
[2018-08-26] MEDS ORDERED: ATROPINE SULF 1 MG/10ml SYR ONE (15:38)
[2018-08-26] MEDS ORDERED: CLOPIDOGREL BISULFATE 75 MG TAB ONE (15:49)
--- NOTE | 2018-08-26 17:40 | NUR ---
RECEIVED REPORT FROM MAIK MILES OF INJECTION MOLDING ENGINEER
[2018-08-26] MEDS: hydrALAZINE HCL 20 MG/ML VL IV PRN (17:45)
--- NOTE | 2018-08-26 18:30 | NUR ---
Telemetry admit from SUPERINTENDENT MARINE AZALEA BAUTISTA admitted to Telemetry unit after SBAR received. Patient oriented to Michelle Parks, primary RN, unit, room, bed, and unit policies regarding patient care and visiting hours. Patient now on continuous telemetry monitoring, tele box # 13 and telemetry reading on arrival to unit is SINUS RHYTHM AT 73 BPM. Patient placed on bedside oxygen, weighed by bedscale and encouraged to call if they need something. All questions and concerns addressed, patient verbalized understanding. Note: PT IS AWAKE AND ALERT, S/P LHC, POST OP DRESSING ON RIGHT GROIN CLEAN DRY AND INTACT, WILL CONTINUE TO MONITOR.
[2018-08-26] MEDS ORDERED: INFLUENZA QUAD 2018-2019 0.5 ML SYRG IM ONE (19:30)
[2018-08-26] MEDS ORDERED: PNEUMOCOCCAL VACC POLYS 25 MCG/0.5 ML VIAL IM ONE (19:30)
--- NOTE | 2018-08-26 19:30 | NUR ---
Opening Shift Note Assumed care of patient, awake and alert. No S/S of distress/SOB or pain. Instructed on POC and to call for assist PRN, will continue to monitor for changes Q1hr and PRN. 2 L NC, Bed locked and in lowest position, 2 X side rails. Dressing on Right Groin C/D/I, will continue to monitor.
--- NOTE | 2018-08-26 20:34 | NUR ---
CRITICAL LAB VALUE CALL Chemistry call critical lab value troponin of 18.30 will page hospitalist
--- NOTE | 2018-08-26 20:35 | NUR ---
PAGED HOSPITALIST Regarding critical TROPONIN LEVEL 18.30 will continue to monitor pt.
--- NOTE | 2018-08-26 20:51 | NUR ---
HOSPITALIST CALL BACK Informed in regards to Critical Lab of troponin 13.8 , no new orders given, will continue to monitor.
--- NOTE | 2018-08-26 21:49 | NUR ---
PT PNA VAC UPDATE PT reported that received the PNA Vaccine last year, informed the PNA vac is good for up to 5 years
[2018-08-26] MEDS: CARVEDILOL 3.125 MG TAB PO SCH (22:00)
[2018-08-26] MEDS ORDERED: ATORVASTATIN 20 MG TAB PO SCH (22:00)
[2018-08-26 22:08] VITALS: BP 151/62
[2018-08-27] MEDS: ALBUTEROL SULF 2.5 MG/0.5ML(0.5%) NEB SOLN NEB SCH ×3 (00:05→11:49)
--- NOTE | 2018-08-27 00:42 | NUR ---
IV insertion IV access obtained, via clean sterile technique by inserting 22 gauge catheter at after 1 attempt(s). IV secured properly. No trauma to site. Patient tolerated well. NOTE:
[2018-08-27 05:29] VITALS: BP 153/59
[2018-08-27] MEDS: hydrALAZINE HCL 20 MG/ML VL IV PRN (06:38)
[2018-08-27 06:48] LABS: Basophils # (auto) 0 uL; Basophils % (auto) 0.5 % (0.0-2.0); Eosinophils # (auto) 0.1 uL; Hematocrit 38.9 % (36.0-46.0); Hemoglobin 13.2 g/dL (12.2-16.2); Lymphocytes # (auto) 1.1 uL; Mean Corpuscular Hemoglobin 33.4 pg (28.0-32.0); Mean Corpuscular Volume 98.1 fL (80.0-100.0); Monocytes # (auto) 0.4 uL; Monocytes % (auto) 9.3 % (0.0-12.0); Neutrophils # (auto) 2.4 uL; Neutrophils % (auto) 59.2 % (37.0-80.0); Nucleated Red Blood Cells % 0.2 %; Platelet Count (auto) 120 10^3/uL (140-450); Red Blood Cells 3.96 10^6/uL (4.0-5.20); Red Cell Distribution Width 13.5 % (11.8-14.3); White Blood Cell 4.1 10^3/uL (4.4-10.8)
[2018-08-27 07:02] LABS: Calcium 8.1 mg/dL (8.5-10.1); Magnesium 2.2 mg/dL (1.6-2.6); Potassium 3.6 mmol/L (3.5-5.1)
--- NOTE | 2018-08-27 07:30 | NUR ---
RECEIVED REPORT FROM NIGHT NURSE. PATIENT RESTING IN BED, NO DISTRESS NOTED. WILL CONTINUE TO MONITOR.
[2018-08-27 09:00] VITALS: BP 156/58
[2018-08-27] MEDS: CARVEDILOL 3.125 MG TAB PO SCH (09:54)
[2018-08-27] MEDS: ENOXAPARIN SOD 100 MG/1 ML SYRINGE SC SCH (09:56)
[2018-08-27] MEDS ORDERED: PATIENTS OWN MEDICATION (Lisinopril 1 TAB) PO SCH (10:00)
[2018-08-27] MEDS ORDERED: FUROSEMIDE 20 MG TAB PO SCH (10:00)
[2018-08-27] MEDS ORDERED: ASPirin-EC 81 mg tab PO SCH (10:00)
[2018-08-27] MEDS ORDERED: NITROGLYCERIN 0.4MG/HR TOPICAL PATCH TD SCH (10:00)
[2018-08-27] MEDS ORDERED: SPIRONOLACTONE 25 MG TAB PO SCH (10:00)
[2018-08-27] MEDS ORDERED: FUROSEMIDE 20 MG PO SCH (10:00)
[2018-08-27] MEDS ORDERED: CLOPIDOGREL BISULFATE 75 MG TAB PO SCH (10:00)
[2018-08-27] MEDS ORDERED: LISINOPRIL 20 MG TAB PO SCH (10:00)
[2018-08-27] MEDS ORDERED: PATIENTS OWN MEDICATION (Simvastatin 40 MG) PO SCH (10:00)
[2018-08-27 13:00] VITALS: BP 122/42
--- NOTE | 2018-08-27 18:10 | NUR ---
Discharge instructions given as ordered. Encourage to follow up with PMD as instructed. All questions and concerns addressed. Patient verbalized understanding. Medication reconciliation form completed and copy given to patient. IV removed with catheter intact, pressure dressing applied Telemetry unit returned to ICU. Patient taken to vehicle WALKING with all personal belongings, accompanied by staff and family member. No distress noted at time of departure.
== END 2018-08-27 18:15 | disposition home or self-care (01) | DRG 246 ==
LOC: ER 09:43 → EDBD 09:43 → OVERFLOW 11:25 → TELE-EAST 18:29
PROVIDERS: ADMIT Nurse Practitioner Acute Care; ATTEND Internal Medicine
PROC: 4A023N7 Measurement of Cardiac Sampling and Pressure, Left Heart, Percutaneous Approach (ICD-10-PCS; principal; 2018-08-26)
PROC: 027034Z Dilation of Coronary Artery, One Artery with Drug-eluting Intraluminal Device, Percutaneous Approach (ICD-10-PCS; 2018-08-26)
PROC: B2111ZZ Fluoroscopy of Multiple Coronary Arteries using Low Osmolar Contrast (ICD-10-PCS; 2018-08-26)
DX: I21.4 Non-ST elevation (NSTEMI) myocardial infarction (principal); I50.43 Acute on chronic combined systolic (congestive) and diastolic (congestive) heart failure; E44.0 Moderate protein-calorie malnutrition; I13.0 Hypertensive heart and chronic kidney disease with heart failure and stage 1 through stage 4 chronic kidney disease, or unspecified chronic kidney disease; E11.21 Type 2 diabetes mellitus with diabetic nephropathy; I25.10 Atherosclerotic heart disease of native coronary artery without angina pectoris; I25.5 Ischemic cardiomyopathy; Z79.84 Long term (current) use of oral hypoglycemic drugs; Z79.82 Long term (current) use of aspirin; N18.2 Chronic kidney disease, stage 2 (mild); I25.2 Old myocardial infarction; E78.5 Hyperlipidemia, unspecified; E66.9 Obesity, unspecified; E11.22 Type 2 diabetes mellitus with diabetic chronic kidney disease; Z79.899 Other long term (current) drug therapy; Z82.49 Family history of ischemic heart disease and other diseases of the circulatory system; Z95.5 Presence of coronary angioplasty implant and graft; Z95.0 Presence of cardiac pacemaker; Z68.33 Body mass index [BMI] 33.0-33.9, adult
CPT/HCPCS: 36415; 71045; 80048; 80053; 80061; 81001; 83036; 83735; 83880; 84443; 84484; 85025; 85610; 85730; 90674; 94640; 94761; 96360; 99152; A6257; C1874; C1887; G0378; J2250; Q9967

== ENCOUNTER → 2018-09-18 | Outpatient (CLI) | payer OTHER, MEDICAID ==
[~2018-09-18] MED LIST changes: -CLOP75TA28 PO; -NITR0.4S29 SL
[2018-09-18 13:09] LABS: Basophils # (auto) 0 uL; Basophils % (auto) 0.6 % (0.0-2.0); Eosinophils # (auto) 0.1 uL; Eosinophils % (auto) 2.5 % (0.0-7.0); Lymphocytes # (auto) 1.3 uL; Lymphocytes % (auto) 34.3 % (10.0-50.0); Mean Corpuscular Hgb Conc. 33.5 g/dL (32.0-36.0); Mean Corpuscular Volume 98.7 fL (80.0-100.0); Monocytes # (auto) 0.3 uL; Monocytes % (auto) 6.9 % (0.0-12.0); Neutrophils # (auto) 2.2 uL; Neutrophils % (auto) 55.7 % (37.0-80.0); Nucleated Red Blood Cells % 0.1 %; Platelet Count (auto) 135 10^3/uL (140-450); Red Blood Cells 4.25 10^6/uL (4.0-5.20); Red Cell Distribution Width 13.5 % (11.8-14.3); White Blood Cell 3.9 10^3/uL (4.4-10.8)
[2018-09-18 13:15] LABS: Urine Bacteria MANY /hpf (None Seen); Urine Blood Negative /uL (Negative); Urine Specific Gravity 1.015 (1.001-1.035); Urine WBC 3 /hpf (0 - 5)
[2018-09-18 13:32] LABS: Albumin 3.3 g/dL (3.4-5.0); BUN/Creatinine Ratio 17.2; Calcium 8.8 mg/dL (8.5-10.1); Potassium 4.4 mmol/L (3.5-5.1)
[2018-09-18 13:33] LABS: INR 1.01 (0.9-1.15); Partial Thromboplastin Time 30.1 sec (23.78-33.04); Prothrombin Time 10.8 sec (9.27-12.13)
[2018-09-18 13:36] LABS: Bilirubin, Total 0.6 mg/dL (0.2-1.0); Total Protein 7.1 g/dL (6.4-8.2)
== END | disposition home or self-care (01) ==
LOC: LAB 12:43
PROVIDERS: ATTEND Nurse Practitioner
DX: Z01.818 Encounter for other preprocedural examination (principal); E78.5 Hyperlipidemia, unspecified
CPT/HCPCS: 36415; 80053; 80061; 81001; 82043; 82306; 83036; 84443; 85025; 85610; 85730

== ENCOUNTER 2018-09-26 08:35 | Inpatient (IN) | payer OTHER, MEDICAID | END 2018-09-27 19:50 | disposition home or self-care (01) | LOC: CATH 08:35 → WEST WING 18:57 → TELE-WESTW 23:40 | PROC: 0JPT3PZ Removal of Cardiac Rhythm Related Device from Trunk Subcutaneous Tissue and Fascia, Percutaneous Approach (ICD-10-PCS; principal; ~2018-09-26) | PROC: 0JH609Z Insertion of Cardiac Resynchronization Defibrillator Pulse Generator into Chest Subcutaneous Tissue and Fascia, Open Approach (ICD-10-PCS; ~2018-09-26) | PROC: 02HL3KZ Insertion of Defibrillator Lead into Left Ventricle, Percutaneous Approach (ICD-10-PCS; ~2018-09-26) | PROC: 02HK3KZ Insertion of Defibrillator Lead into Right Ventricle, Percutaneous Approach (ICD-10-PCS; ~2018-09-26) | PROC: 02H63KZ Insertion of Defibrillator Lead into Right Atrium, Percutaneous Approach (ICD-10-PCS; ~2018-09-26) | DX: I44.2 Atrioventricular block, complete (principal); I50.23 Acute on chronic systolic (congestive) heart failure; I42.0 Dilated cardiomyopathy; I49.5 Sick sinus syndrome ==

== ENCOUNTER → 2018-12-12 | Outpatient (CLI) | payer OTHER, MEDICAID ==
[~2018-12-12] MED LIST changes: +ATOR20TA PO; +CLOP75TA41 PO; -Ipratropium Bromide NEB; +POTA1TAB61 PO; -SIMV-13 PO; -SPIR25TA8 PO
== END | disposition home or self-care (01) ==
LOC: Rad HDHVI 16:11
PROVIDERS: ATTEND Internal Medicine Cardiovascular Disease
DX: I35.1 Nonrheumatic aortic (valve) insufficiency (principal); I25.5 Ischemic cardiomyopathy; R06.02 Shortness of breath; I49.5 Sick sinus syndrome; I11.9 Hypertensive heart disease without heart failure; I50.9 Heart failure, unspecified
CPT/HCPCS: 93306

== ENCOUNTER 2019-01-14 12:53 | Emergency (ER) | payer OTHER, MEDICAID ==
[~2019-01-14] VITALS: Ht 165.1 cm; Wt 52.2 kg
[2019-01-14 13:51] VITALS: BP 152/86
== END 2019-01-14 14:41 | disposition home or self-care (01) ==
LOC: EDBD 12:53 → ER 13:01
DX: I11.0 Hypertensive heart disease with heart failure (principal); K08.89 Other specified disorders of teeth and supporting structures; I50.9 Heart failure, unspecified; E78.5 Hyperlipidemia, unspecified; I25.2 Old myocardial infarction; Z86.73 Personal history of transient ischemic attack (TIA), and cerebral infarction without residual deficits; Z98.61 Coronary angioplasty status; Z95.0 Presence of cardiac pacemaker
CPT/HCPCS: 99283; J7030

== ENCOUNTER 2019-08-05 19:34 | Inpatient (IN) | payer OTHER, MEDICAID ==
[~2019-08-05] VITALS: Ht 157.5 cm; Wt 97.5 kg
[~2019-08-05 19:34] MED LIST changes: +FURO1TAB33 PO; -FURO20TA PO
[2019-08-05] MEDS ORDERED: cloNIDine HCL 0.1 MG TAB ONE (20:02)
[2019-08-05] MEDS ORDERED: cloNIDine HCL 0.1 MG TAB PO ONE (20:15)
[2019-08-05 20:57] LABS: Urine Bacteria NONE SEEN /hpf (None Seen); Urine Blood Negative /uL (Negative); Urine Specific Gravity 1.005 (1.001-1.035); Urine WBC <1 /hpf (0 - 5)
[2019-08-05 20:59] LABS: Basophils # (auto) 0 uL; Basophils % (auto) 0.7 % (0.0-2.0); Eosinophils # (auto) 0.1 uL; Eosinophils % (auto) 1.7 % (0.0-7.0); Hematocrit 41.8 % (36.0-46.0); Lymphocytes # (auto) 1.5 uL; Lymphocytes % (auto) 22.1 % (10.0-50.0); Mean Corpuscular Hgb Conc. 33.5 g/dL (32.0-36.0); Mean Corpuscular Volume 98.6 fL (80.0-100.0); Monocytes # (auto) 0.5 uL; Monocytes % (auto) 6.8 % (0.0-12.0); Neutrophils # (auto) 4.7 uL; Neutrophils % (auto) 68.7 % (37.0-80.0); Platelet Count (auto) 140 10^3/uL (140-450); Red Blood Cells 4.24 10^6/uL (4.0-5.20); Red Cell Distribution Width 13.8 % (11.8-14.3); White Blood Cell 6.8 10^3/uL (4.4-10.8)
[2019-08-05 21:13] LABS: INR 1.03 (0.9-1.15)
[2019-08-05 21:17] LABS: Albumin 3.4 g/dL (3.4-5.0); Anion Gap 4 (5-15); Blood Urea Nitrogen 17 mg/dL (7-18); Calcium 8.4 mg/dL (8.5-10.1); Carbon Dioxide 32 mmol/L (21-32); Chloride 105 mmol/L (98-107); Glucose 116 mg/dL (74-106); Sodium 141 mmol/L (136-145)
[2019-08-05 21:22] LABS: Alanine Aminotransferase 18 U/L (13-56); Alkaline Phosphatase 97 U/L (45-117); Aspartate Aminotransferase 14 U/L (15-37); BUN/Creatinine Ratio 14.9; Bilirubin, Total 0.5 mg/dL (0.2-1.0); GFR African American 59 mL/min; GFR Non-African American 49 mL/min; Total Protein 7.6 g/dL (6.4-8.2)
[2019-08-05] MEDS ORDERED: HYDROcodone-ACET 7.5/325MG TAB PO ONE (22:00)
[2019-08-06] MEDS ORDERED: DEXTROSE (50%) 50ML SYRG IV PRN (03:00)
[2019-08-06] MEDS ORDERED: ONDANSETRON HCL 4 MG/2 ML VIAL IV PRN (03:00)
[2019-08-06] MEDS ORDERED: ACETAMINOPHEN 325 MG TAB PO PRN (03:00)
[2019-08-06] MEDS ORDERED: TEMAZEPAM 15 MG CAP PO PRN (03:00)
[2019-08-06] MEDS ORDERED: MORPHINE SULF INJ 2 MG/ML SYRINGE 1ML IV PRN (03:15)
[2019-08-06] MEDS ORDERED: NITROGLYCERIN 0.4 MG SL TAB SL PRN (03:15)
[2019-08-06 04:18] VITALS: BP 148/69
--- NOTE | 2019-08-06 04:55 | NUR ---
Telemetry admit from ER LILYAZALEA admitted to Telemetry unit after SBAR received. Patient oriented to Yosef Hernadez, primary RN, unit, room, bed, and unit policies regarding patient care and visiting hours. Patient now on continuous telemetry monitoring, tele box # [36] and telemetry reading on arrival to unit is [PACED 60]. Patient weighed by bedscale and encouraged to call if they need something. All questions and concerns addressed, patient verbalized understanding. Note: []
[2019-08-06] MEDS ORDERED: PNEUMOCOCCAL VACC POLYS 25 MCG/0.5 ML VIAL IM ONE (05:00)
[2019-08-06] MEDS ORDERED: INFLUENZA QUAD 2019-2020 0.5ml SYRG IM ONE (05:00)
[2019-08-06] MEDS ORDERED: CAR125T PO (05:26)
[2019-08-06] MEDS ORDERED: FURO1TAB31 PO (05:26)
[2019-08-06] MEDS ORDERED: CYCL0.05 EACHEYE (05:26)
[2019-08-06] MEDS ORDERED: CLOP75TA28 PO (05:26)
[2019-08-06] MEDS ORDERED: AMIO200T33 PO (05:30)
[2019-08-06] MEDS ORDERED: RIVA10TA PO (05:30)
[2019-08-06] MEDS ORDERED: TEMA15CA91 PO (05:32)
[2019-08-06] MEDS: ACCU-CHEK COMFORT CURVE STRIP VI SCH ×4 (05:58→23:41)
[2019-08-06] MEDS: InsuLIN REG 1unit/0.01ml Soln (100units/ml) SC SCH ×4 (05:58→23:41)
--- NOTE | 2019-08-06 06:10 | NUR ---
ACCU-CHECK, BS 105. NO COVERAGE. CONTINUE TO MONITOR.
--- NOTE | 2019-08-06 07:38 | NUR ---
OPENING NOTE Assumed care of patient from NOC RNDorina. Patient awake and alert with no S/S of distress/SOB or pain. Instructed on POC and to call for assistance PRN, verbalized understanding. Bed in lowest, locked position with side rails up x2. Fall precautions in place and call light within reach. Will continue to monitor for changes Q1hr and PRN.
[2019-08-06 08:56] VITALS: BP 135/63
[2019-08-06] MEDS ORDERED: CLOPIDOGREL BISULFATE 75 MG TAB PO SCH (10:00)
[2019-08-06] MEDS ORDERED: ASPirin 81 mg TAB PO SCH (10:00)
[2019-08-06] MEDS: AMIODARONE HCL 200 MG TAB PO SCH (10:17)
[2019-08-06] MEDS: FAMOTIDINE 20 MG TAB PO SCH ×2 (10:18→21:24)
[2019-08-06] MEDS: RIVAROXABAN 10 MG TAB PO SCH (10:18)
[2019-08-06] MEDS: CARVEDILOL 12.5 MG TAB PO SCH ×2 (10:18→21:25)
[2019-08-06] MEDS: FUROSEMIDE 20 MG TAB PO SCH (10:18)
[2019-08-06] MEDS: PRASUGREL HCL 10 MG TAB PO SCH (10:18)
[2019-08-06] MEDS: LISINOPRIL 20 MG TAB PO SCH (10:19)
[2019-08-06 13:00] VITALS: BP 134/56
[2019-08-06 17:00] VITALS: BP 154/69
--- NOTE | 2019-08-06 19:37 | NUR ---
RECEIVED PATIENT FROM DAY SHIFT RN. PATIENT WALKED AROUND THE BED AND BACK TO BED. NO S/S OF DISTRESS NOTED. DENIED PAIN FOR NOW. PATIENT REQUESTED TO HAVE FLU SHOT WHEN DISCHARGE. POC INSTRUCTED AND ENCOURAGED PATIENT TO CALL FOR HEAD OF [employer]ISING [employer]GR[employer] IF NEEDED. BED IN LOWEST POSITION WITH SIDE RAILS UP X 2. CALL [place] WITHIN REACH. ALARM ON. CONTINUE TO MONITOR FOR CHANGES Q1H AND PRN.
[2019-08-06] MEDS ORDERED: ATORVASTATIN 20 MG TAB PO SCH (22:00)
--- NOTE | 2019-08-06 22:53 | NUR ---
PATIENT WALKED TO BATHROOM AND BACK TO BED WITH STEADY GAIT. NO S/S OF DISTRESS NOTED. CONTINUE CARE
--- NOTE | 2019-08-07 00:22 | NUR ---
ACCU-CHECK, BS 108. NO COVERAGE. CONTINUE CARE.
--- NOTE | 2019-08-07 02:22 | NUR ---
PATIENT SLEEPING. NO S/S OF DISTRESS NOTED. CONTINUE CARE.
[2019-08-07 04:33] VITALS: BP 150/64
[2019-08-07] MEDS: InsuLIN REG 1unit/0.01ml Soln (100units/ml) SC SCH ×2 (06:00→12:00)
[2019-08-07 06:20] LABS: Basophils # (auto) 0 uL; Basophils % (auto) 0.6 % (0.0-2.0); Eosinophils # (auto) 0.1 uL; Eosinophils % (auto) 2.3 % (0.0-7.0); Hemoglobin 12.1 g/dL (12.2-16.2); Lymphocytes # (auto) 1.3 uL; Lymphocytes % (auto) 27.8 % (10.0-50.0); Mean Corpuscular Hemoglobin 33.6 pg (28.0-32.0); Mean Corpuscular Hgb Conc. 34.6 g/dL (32.0-36.0); Mean Corpuscular Volume 97.1 fL (80.0-100.0); Monocytes # (auto) 0.5 uL; Monocytes % (auto) 9.8 % (0.0-12.0); Neutrophils # (auto) 2.8 uL; Neutrophils % (auto) 59.5 % (37.0-80.0); Platelet Count (auto) 124 10^3/uL (140-450); White Blood Cell 4.6 10^3/uL (4.4-10.8)
[2019-08-07] MEDS: ACCU-CHEK COMFORT CURVE STRIP VI SCH ×2 (06:21→12:16)
--- NOTE | 2019-08-07 06:23 | NUR ---
ACCU-CHECK, BS 112. NO COVERAGE. CONTINUE CARE.
[2019-08-07 06:40] LABS: Calcium 8.1 mg/dL (8.5-10.1); Potassium 3.9 mmol/L (3.5-5.1)
--- NOTE | 2019-08-07 07:30 | NUR ---
OPENING NOTE ASSUMED CARE OF PT. ALERT AND ORIENTED. NO S/S OF SOB/DISTRESS NOTED. DENIES ANY PAIN. SAFETY PRECAUTIONS IN PLACE, BED SET TO LOWEST POSITION/LOCKED, BEDSIDE RAILS UP X2, CALL LIGHT WITHIN REACH. INSTRUCTED PT TO CALL FOR ASSISTANCE. UPDATED ON POC. WILL CONTINUE TO MONITOR Q1HR AND PRN.
[2019-08-07 08:30] VITALS: BP 145/60
[2019-08-07] MEDS: AMIODARONE HCL 200 MG TAB PO SCH (09:39)
[2019-08-07] MEDS: CARVEDILOL 12.5 MG TAB PO SCH (09:39)
[2019-08-07] MEDS: FAMOTIDINE 20 MG TAB PO SCH (09:39)
[2019-08-07] MEDS: RIVAROXABAN 10 MG TAB PO SCH (09:39)
[2019-08-07] MEDS: FUROSEMIDE 20 MG TAB PO SCH (09:40)
[2019-08-07] MEDS: PRASUGREL HCL 10 MG TAB PO SCH (09:40)
[2019-08-07] MEDS: LISINOPRIL 20 MG TAB PO SCH (09:41)
[2019-08-07 13:14] VITALS: BP 134/62
--- NOTE | 2019-08-07 14:57 | NUR ---
Patient taken to vehicle via wheelchair with all personal belongings, accompanied by staff and family member. No distress noted at time of departure.
--- NOTE | 2019-08-07 16:00 | NUR ---
Discharge Discharge instructions given as ordered. Encourage to follow up with PMD as instructed. All questions and concerns addressed. IV removed with catheter intact, pressure dressing applied. Telemetry unit returned to ICU.
== END 2019-08-07 17:00 | disposition home or self-care (01) | DRG 313 ==
LOC: ER 19:34 → TELE 19:35 → TELE-CENTR 08-06 05:10
PROVIDERS: ADMIT Nurse Practitioner; ATTEND Internal Medicine
DX: R07.89 Other chest pain (principal); D68.59 Other primary thrombophilia; I50.22 Chronic systolic (congestive) heart failure; E11.9 Type 2 diabetes mellitus without complications; E66.01 Morbid (severe) obesity due to excess calories; I08.0 Rheumatic disorders of both mitral and aortic valves; I48.91 Unspecified atrial fibrillation; I11.0 Hypertensive heart disease with heart failure; E78.5 Hyperlipidemia, unspecified; I25.10 Atherosclerotic heart disease of native coronary artery without angina pectoris; Z68.39 Body mass index [BMI] 39.0-39.9, adult; Z95.810 Presence of automatic (implantable) cardiac defibrillator; I25.2 Old myocardial infarction; Z95.5 Presence of coronary angioplasty implant and graft; Z79.899 Other long term (current) drug therapy; Z82.49 Family history of ischemic heart disease and other diseases of the circulatory system; Z82.3 Family history of stroke
CPT/HCPCS: 36415; 71046; 80048; 80053; 81001; 82962; 83605; 83880; 84484; 85025; 85610; 85730; 87040; 87804; 93005; G0378

== ENCOUNTER 2020-11-20 11:17 | Inpatient (IN) | payer BC, MEDICAID, MEDICARE, OTHER ==
[~2020-11-20] VITALS: Ht 157.5 cm; Wt 91.0 kg
[~2020-11-20 11:17] MED LIST changes: +AMIO200T33 PO; -ATOR20TA PO; +CAR125T PO; -CAR3125T PO; +CLOP75TA28 PO; -CLOP75TA41 PO; +CYCL0.05 EACHEYE; +FURO1TAB31 PO; -FURO1TAB33 PO; -PRAS10TA6 PO; +RIVA10TA PO; +TEMA15CA2 PO
[2020-11-20 11:55] LABS: Urine WBC None Seen /hpf (0 - 5)
[2020-11-20 12:10] LABS: Urine Bacteria FEW /hpf (None Seen); Urine Blood Negative /uL (Negative); Urine Specific Gravity 1.003 (1.001-1.035)
[2020-11-20 12:28] LABS: Basophils # (auto) 0 10 ^3/uL (0-0.2); Basophils % (auto) 0.7 % (0.0-2.0); Eosinophils # (auto) 0 10 ^3/uL (0-0.8); Eosinophils % (auto) 0.4 % (0.0-7.0); Hematocrit 38.5 % (36.0-46.0); Hemoglobin 12.9 g/dL (12.2-16.2); Lymphocytes # (auto) 1.3 10 ^3/uL (0.4-5.4); Lymphocytes % (auto) 25.3 % (10.0-50.0); Mean Corpuscular Hemoglobin 32.8 pg (28.0-32.0); Mean Corpuscular Hgb Conc. 33.6 g/dL (32.0-36.0); Mean Corpuscular Volume 97.7 fL (80.0-100.0); Monocytes # (auto) 0.2 10 ^3/uL (0-1.3); Monocytes % (auto) 3.8 % (0.0-12.0); Neutrophils # (auto) 3.5 10 ^3/uL (1.6-8.6); Neutrophils % (auto) 69.8 % (37.0-80.0); Nucleated Red Blood Cells % 0.1 %; Platelet Count (auto) 146 10^3/uL (140-450); Red Blood Cells 3.95 10^6/uL (4.0-5.20); Red Cell Distribution Width 13.7 % (11.8-14.3)
[2020-11-20 12:45] LABS: Albumin 3.2 g/dL (3.4-5.0); Anion Gap 5 (5-15); Blood Alcohol < 3.0 mg/dL (0-5); Blood Urea Nitrogen 15 mg/dL (7-18); Calcium 8.4 mg/dL (8.5-10.1); Carbon Dioxide 28 mmol/L (21-32); Chloride 108 mmol/L (98-107); Glucose 123 mg/dL (74-106); Magnesium 2.4 mg/dL (1.6-2.6); Potassium 4.4 mmol/L (3.5-5.1); Sodium 141 mmol/L (136-145)
[2020-11-20 12:47] LABS: Alanine Aminotransferase 16 U/L (13-56); Aspartate Aminotransferase 21 U/L (15-37); BUN/Creatinine Ratio 19.5; GFR African American 93 mL/min; GFR Non-African American 77 mL/min
[2020-11-20 12:48] LABS: INR 1.01 (0.9-1.15); Partial Thromboplastin Time 26.4 sec (23.0-31.2)
[2020-11-20 13:04] LABS: Alkaline Phosphatase 90 U/L (45-117); Bilirubin, Total 0.4 mg/dL (0.2-1.0); Total Protein 7.1 g/dL (6.4-8.2)
[2020-11-20] MEDS ORDERED: ACETAMINOPHEN 325 MG TAB PO ONE (13:45)
[2020-11-20] MEDS ORDERED: cloNIDine HCL 0.1 MG TAB PO ONE (13:45)
[2020-11-20] MEDS ORDERED: DEXTROSE (50%) 50ML SYRG IV PRN (15:30)
[2020-11-20] MEDS ORDERED: cloNIDine HCL 0.1 MG TAB PO PRN (15:30)
[2020-11-20] MEDS ORDERED: MORPHINE SULF INJ 2 MG/ML SYRINGE 1ML IV PRN ×2 (15:30)
[2020-11-20] MEDS ORDERED: ONDANSETRON HCL 4 MG/2 ML VIAL IV PRN (15:30)
[2020-11-20] MEDS ORDERED: FUROSEMIDE 20 MG/2 ML VIAL IV ONE (15:30)
[2020-11-20] MEDS ORDERED: NITROGLYCERIN 0.4 MG SL TAB SL PRN (15:30)
[2020-11-20] MEDS ORDERED: HYDROcodone-ACET 5/325MG TAB PO PRN (15:30)
[2020-11-20] MEDS ORDERED: ACETAMINOPHEN 500 MG TAB PO PRN (15:30)
[2020-11-20] MEDS: ACCU-CHEK COMFORT CURVE STRIP VI SCH ×2 (17:38→22:26)
[2020-11-20] MEDS: InsuLIN REG 1unit/0.01ml Soln (100units/ml) SC SCH ×2 (17:39→22:00)
[2020-11-20] MEDS: CARVEDILOL 12.5 MG TAB PO SCH (22:25)
[2020-11-20] MEDS: LISINOPRIL 20 MG TAB PO SCH (22:26)
[2020-11-20 22:28] VITALS: BP 150/58
[2020-11-20] MEDS ORDERED: NIF10C PO (23:59)
[2020-11-21] MEDS ORDERED: MULTCAP45 PO
[2020-11-21 05:00] VITALS: BP 138/66
[2020-11-21] MEDS: ACCU-CHEK COMFORT CURVE STRIP VI SCH ×4 (06:35→22:20)
[2020-11-21] MEDS: InsuLIN REG 1unit/0.01ml Soln (100units/ml) SC SCH ×4 (06:36→22:26)
[2020-11-21 09:00] VITALS: BP 128/48
[2020-11-21] MEDS: FAMOTIDINE 20 MG TAB PO SCH (10:02)
[2020-11-21] MEDS: AMIODARONE HCL 200 MG TAB PO SCH (10:02)
[2020-11-21] MEDS: ASPirin-EC 81 mg tab PO SCH (10:02)
[2020-11-21] MEDS: CARVEDILOL 12.5 MG TAB PO SCH ×2 (10:02→22:19)
[2020-11-21] MEDS: CLOPIDOGREL BISULFATE 75 MG TAB PO SCH (10:03)
[2020-11-21] MEDS: NIFEdipine ER 30 MG TAB PO SCH (10:03)
[2020-11-21] MEDS: FUROSEMIDE 40 MG TAB PO SCH (10:03)
[2020-11-21] MEDS: LISINOPRIL 20 MG TAB PO SCH ×2 (10:04→22:19)
[2020-11-21] MEDS ORDERED: AZITHROMYCIN 250 MG TAB PO ONE (11:00)
[2020-11-21] MEDS ORDERED: cefTRIAXone 1GM/50ML D5W 50 ML IV ONE (11:00)
[2020-11-21 12:29] VITALS: BP 120/58
[2020-11-21 17:00] VITALS: BP 150/67
[2020-11-21 22:00] VITALS: BP 137/49
[2020-11-21] MEDS ORDERED: TEMAZEPAM 15 MG CAP PO ONE (22:15)
[2020-11-22] VITALS (7 sets, daily range): BP systolic 115–172; BP diastolic 61–73
[2020-11-22] MEDS: ACCU-CHEK COMFORT CURVE STRIP VI SCH ×3 (06:15→17:37)
[2020-11-22] MEDS: InsuLIN REG 1unit/0.01ml Soln (100units/ml) SC SCH ×3 (06:15→17:37)
[2020-11-22 07:04] LABS: Basophils # (auto) 0 10 ^3/uL (0-0.2); Basophils % (auto) 0.5 % (0.0-2.0); Eosinophils # (auto) 0.1 10 ^3/uL (0-0.8); Eosinophils % (auto) 1.9 % (0.0-7.0); Hemoglobin 12.2 g/dL (12.2-16.2); Lymphocytes % (auto) 43.2 % (10.0-50.0); Mean Corpuscular Hemoglobin 33.5 pg (28.0-32.0); Mean Corpuscular Hgb Conc. 33.9 g/dL (32.0-36.0); Mean Corpuscular Volume 98.9 fL (80.0-100.0); Monocytes # (auto) 0.4 10 ^3/uL (0-1.3); Monocytes % (auto) 8.3 % (0.0-12.0); Neutrophils # (auto) 2.2 10 ^3/uL (1.6-8.6); Neutrophils % (auto) 46.1 % (37.0-80.0); Nucleated Red Blood Cells % 0.1 %; Platelet Count (auto) 126 10^3/uL (140-450); Red Blood Cells 3.64 10^6/uL (4.0-5.20); Red Cell Distribution Width 13.6 % (11.8-14.3); White Blood Cell 4.7 10^3/uL (4.4-10.8)
[2020-11-22 07:25] LABS: Alanine Aminotransferase 13 U/L (13-56); Albumin 2.9 g/dL (3.4-5.0); Anion Gap 6 (5-15); Aspartate Aminotransferase 15 U/L (15-37); BUN/Creatinine Ratio 22.7; Blood Urea Nitrogen 20 mg/dL (7-18); Calcium 8.2 mg/dL (8.5-10.1); Carbon Dioxide 26 mmol/L (21-32); Chloride 109 mmol/L (98-107); GFR African American 80 mL/min; GFR Non-African American 66 mL/min; Glucose 83 mg/dL (74-106); Potassium 3.7 mmol/L (3.5-5.1); Sodium 141 mmol/L (136-145)
[2020-11-22 07:30] LABS: Alkaline Phosphatase 79 U/L (45-117); Bilirubin, Total 0.4 mg/dL (0.2-1.0); Total Protein 6.4 g/dL (6.4-8.2)
[2020-11-22] MEDS ORDERED: ADENOSINE 76 MG in GIVE UN-DILUTED 0 ML IV STA (08:30)
[2020-11-22] MEDS ORDERED: cefTRIAXone 1GM/50ML D5W 50 ML IV SCH (09:00)
[2020-11-22] MEDS ORDERED: AZITHROMYCIN 250 MG TAB PO SCH (10:00)
[2020-11-22] MEDS: AMIODARONE HCL 200 MG TAB PO SCH (10:12)
[2020-11-22] MEDS: ASPirin-EC 81 mg tab PO SCH (10:12)
[2020-11-22] MEDS: CLOPIDOGREL BISULFATE 75 MG TAB PO SCH (10:12)
[2020-11-22] MEDS: CARVEDILOL 12.5 MG TAB PO SCH (10:13)
[2020-11-22] MEDS: FAMOTIDINE 20 MG TAB PO SCH (10:14)
[2020-11-22] MEDS: FUROSEMIDE 40 MG TAB PO SCH (10:14)
[2020-11-22] MEDS: NIFEdipine ER 30 MG TAB PO SCH (10:14)
[2020-11-22] MEDS: LISINOPRIL 20 MG TAB PO SCH (10:14)
[2020-11-22 11:25] LABS: Cholesterol 217 mg/dL (< 200); HDL Cholesterol 46 mg/dL (40-59); LDL Cholesterol 151 mg/dL (< 100); Triglycerides 63 mg/dL (< 150)
== END 2020-11-22 18:25 | disposition home or self-care (01) | DRG 304 ==
LOC: EDBD 11:17 → ER 11:17 → TELE 11:18 → TELE-EAST 21:23
PROVIDERS: ADMIT Nurse Practitioner Acute Care; ATTEND Internal Medicine
DX: I16.9 Hypertensive crisis, unspecified (principal); I50.43 Acute on chronic combined systolic (congestive) and diastolic (congestive) heart failure; J98.11 Atelectasis; I42.9 Cardiomyopathy, unspecified; N39.0 Urinary tract infection, site not specified; I25.10 Atherosclerotic heart disease of native coronary artery without angina pectoris; E66.9 Obesity, unspecified; J40 Bronchitis, not specified as acute or chronic; E11.21 Type 2 diabetes mellitus with diabetic nephropathy; E78.5 Hyperlipidemia, unspecified; I11.0 Hypertensive heart disease with heart failure; I25.2 Old myocardial infarction; Z79.82 Long term (current) use of aspirin; Z79.84 Long term (current) use of oral hypoglycemic drugs; Z79.899 Other long term (current) drug therapy; Z82.3 Family history of stroke; Z82.49 Family history of ischemic heart disease and other diseases of the circulatory system; Z95.5 Presence of coronary angioplasty implant and graft; Z95.810 Presence of automatic (implantable) cardiac defibrillator; Z79.01 Long term (current) use of anticoagulants; Z68.37 Body mass index [BMI] 37.0-37.9, adult; Z20.822 Contact with and (suspected) exposure to COVID-19
CPT/HCPCS: 36415; 70450; 71045; 78452; 80053; 80061; 80320; 81001; 82306; 82607; 82962; 83036; 83735; 83880; 84443; 84484; 85025; 85610; 85730; 87070; 87205; 87426; 93005; 93017; 93306; 96374; G0378; J0153; J0696; J1815

== ENCOUNTER → 2020-12-01 | Outpatient (CLI) | payer OTHER ==
[~2020-12-01] MED LIST changes: +MULTCAP45 PO; +NIF10C PO
[2020-12-01 17:32] LABS: Albumin 3.1 g/dL (3.4-5.0); Calcium 8.9 mg/dL (8.5-10.1); Potassium 3.9 mmol/L (3.5-5.1)
[2020-12-01 17:36] LABS: BUN/Creatinine Ratio 18.9; Bilirubin, Total 0.4 mg/dL (0.2-1.0); Total Protein 7.2 g/dL (6.4-8.2)
== END | disposition home or self-care (01) ==
LOC: LAB 16:56
PROVIDERS: ATTEND Internal Medicine
DX: E11.22 Type 2 diabetes mellitus with diabetic chronic kidney disease (principal); N18.2 Chronic kidney disease, stage 2 (mild)
CPT/HCPCS: 36415; 80053; 82043

== ENCOUNTER → 2022-02-13 | Outpatient (CLI) | payer OTHER, MEDICAID ==
[~2022-02-13] MED LIST changes: -LISI-646 PO; +LISI20TA28 PO
[2022-02-13 11:58] LABS: Basophils # (auto) 0 10 ^3/uL (0-0.2); Basophils % (auto) 0.6 % (0.0-2.0); Eosinophils # (auto) 0.1 10 ^3/uL (0-0.8); Eosinophils % (auto) 2.4 % (0.0-7.0); Hematocrit 37.5 % (36.0-46.0); Hemoglobin 12.3 g/dL (12.2-16.2); Lymphocytes # (auto) 1.8 10 ^3/uL (0.4-5.4); Lymphocytes % (auto) 39.8 % (10.0-50.0); Mean Corpuscular Hemoglobin 32.2 pg (28.0-32.0); Mean Corpuscular Hgb Conc. 32.8 g/dL (32.0-36.0); Mean Corpuscular Volume 98.1 fL (80.0-100.0); Monocytes # (auto) 0.4 10 ^3/uL (0-1.3); Monocytes % (auto) 9.1 % (0.0-12.0); Neutrophils # (auto) 2.2 10 ^3/uL (1.6-8.6); Neutrophils % (auto) 48.1 % (37.0-80.0); Red Blood Cells 3.82 10^6/uL (4.0-5.20); Red Cell Distribution Width 14.1 % (11.8-14.3); White Blood Cell 4.6 10^3/uL (4.4-10.8)
[2022-02-13 12:21] LABS: Albumin 2.9 g/dL (3.4-5.0); Calcium 8.5 mg/dL (8.5-10.1); Potassium 3.9 mmol/L (3.5-5.1)
[2022-02-13 12:24] LABS: BUN/Creatinine Ratio 21.1; Bilirubin, Total 0.6 mg/dL (0.2-1.0)
== END | disposition home or self-care (01) ==
LOC: LAB 11:42
PROVIDERS: ATTEND Student in an Organized Health Care Education/Training Program
DX: E11.22 Type 2 diabetes mellitus with diabetic chronic kidney disease (principal); I11.0 Hypertensive heart disease with heart failure; E78.5 Hyperlipidemia, unspecified
CPT/HCPCS: 36415; 80053; 80061; 83036; 85025

== ENCOUNTER → 2022-03-01 | Outpatient (CLI) | payer OTHER, MEDICAID | END | disposition home or self-care (01) | LOC: Rad HDHVI 14:02 | PROVIDERS: ATTEND Internal Medicine Cardiovascular Disease | DX: I08.3 Combined rheumatic disorders of mitral, aortic and tricuspid valves (principal) | CPT/HCPCS: 93306 ==

== ENCOUNTER → 2022-03-03 | Outpatient (CLI) | payer OTHER, MEDICAID ==
[~2022-03-03] VITALS: Ht 157.5 cm; Wt 101.6 kg
[~2022-03-03] MED LIST changes: +ADENOSINE 85 MG in GIVE UN-DILUTED 0 ML IV ONE; +ADENOSINE 90 MG/30 ML INJ IV ONE
== END | disposition home or self-care (01) ==
LOC: Rad HDHVI 08:47
PROVIDERS: ATTEND Internal Medicine Cardiovascular Disease
DX: I21.9 Acute myocardial infarction, unspecified (principal); I10 Essential (primary) hypertension; E78.5 Hyperlipidemia, unspecified; E11.9 Type 2 diabetes mellitus without complications; I50.23 Acute on chronic systolic (congestive) heart failure; I25.10 Atherosclerotic heart disease of native coronary artery without angina pectoris; Z95.0 Presence of cardiac pacemaker; Z82.49 Family history of ischemic heart disease and other diseases of the circulatory system
CPT/HCPCS: 78452; 93005; 96374; 96375; A9500; J0153

== ENCOUNTER → 2022-03-08 | Outpatient (CLI) | payer OTHER, MEDICAID ==
[~2022-03-08] MED LIST changes: -ADENOSINE 85 MG in GIVE UN-DILUTED 0 ML IV ONE; -ADENOSINE 90 MG/30 ML INJ IV ONE
== END | disposition home or self-care (01) ==
LOC: LAB 06:48
PROVIDERS: ATTEND Student in an Organized Health Care Education/Training Program
DX: E11.22 Type 2 diabetes mellitus with diabetic chronic kidney disease (principal); I10 Essential (primary) hypertension; E78.5 Hyperlipidemia, unspecified
CPT/HCPCS: 82274

== ENCOUNTER → 2023-03-07 | Outpatient (CLI) | payer OTHER ==
[~2023-03-07] MED LIST changes: -LISI20TA28 PO; +LISI20TA56 PO
[2023-03-07 11:03] LABS: Calcium 8.5 mg/dL (8.5-10.1); Potassium 4.4 mmol/L (3.5-5.1); Urine Bacteria NONE SEEN /hpf (None Seen); Urine Blood Negative /uL (Negative); Urine Mucus FEW (None Seen); Urine Specific Gravity 1.026 (1.001-1.035); Urine WBC 3 /hpf (0 - 5)
[2023-03-07 11:10] LABS: BUN/Creatinine Ratio 23.1 (10.0-20.0); Bilirubin, Total 0.4 mg/dL (0.2-1.0)
[2023-03-07 11:14] LABS: Basophils # (auto) 0 10 ^3/uL (0-0.2); Basophils % (auto) 0.7 % (0.0-2.0); Eosinophils # (auto) 0.1 10 ^3/uL (0-0.8); Eosinophils % (auto) 1.9 % (0.0-7.0); Hematocrit 40.5 % (36.0-46.0); Hemoglobin 13.1 g/dL (12.2-16.2); Lymphocytes # (auto) 2.2 10 ^3/uL (0.4-5.4); Lymphocytes % (auto) 43.6 % (10.0-50.0); Mean Corpuscular Hemoglobin 31.9 pg (28.0-32.0); Mean Corpuscular Hgb Conc. 32.5 g/dL (32.0-36.0); Mean Corpuscular Volume 98.3 fL (80.0-100.0); Monocytes # (auto) 0.4 10 ^3/uL (0-1.3); Monocytes % (auto) 7.6 % (0.0-12.0); Neutrophils # (auto) 2.3 10 ^3/uL (1.6-8.6); Neutrophils % (auto) 46.2 % (37.0-80.0); Nucleated Red Blood Cells % 0.2 %; Red Blood Cells 4.11 10^6/uL (4.0-5.20); Red Cell Distribution Width 13.6 % (11.8-14.3); White Blood Cell 4.9 10^3/uL (4.4-10.8)
== END | disposition home or self-care (01) ==
LOC: LAB 09:49
PROVIDERS: ATTEND Internal Medicine
DX: E11.22 Type 2 diabetes mellitus with diabetic chronic kidney disease (principal); N18.9 Chronic kidney disease, unspecified
CPT/HCPCS: 36415; 80053; 80061; 81001; 82043; 82306; 83036; 84443; 85025

== ENCOUNTER → 2024-07-02 | Outpatient (CLI) | payer OTHER, MEDICAID, MEDICARE, BC ==
[~2024-07-02] MED LIST changes: -NIF10C PO; +NIFE10CA52 PO; +POTA-215 PO; -POTA1TAB61 PO
[2024-07-02 16:37] LABS: Basophils # (auto) 0 10 ^3/uL (0-0.2); Basophils % (auto) 0.8 % (0.0-2.0); Eosinophils # (auto) 0.1 10 ^3/uL (0-0.8); Eosinophils % (auto) 2.1 % (0.0-7.0); Hematocrit 41.8 % (36.0-46.0); Hemoglobin 14.2 g/dL (12.2-16.2); Lymphocytes # (auto) 1.9 10 ^3/uL (0.4-5.4); Lymphocytes % (auto) 43.2 % (10.0-50.0); Mean Corpuscular Hemoglobin 33.2 pg (28.0-32.0); Mean Corpuscular Hgb Conc. 33.8 g/dL (32.0-36.0); Mean Corpuscular Volume 98.2 fL (80.0-100.0); Monocytes # (auto) 0.4 10 ^3/uL (0-1.3); Monocytes % (auto) 8.5 % (0.0-12.0); Neutrophils % (auto) 45.4 % (37.0-80.0); Nucleated Red Blood Cells % 0.1 %; Platelet Count (auto) 139 10^3/uL (140-450); Red Blood Cells 4.26 10^6/uL (4.0-5.20); Red Cell Distribution Width 13.3 % (11.8-14.3); White Blood Cell 4.4 10^3/uL (4.4-10.8)
[2024-07-02 17:03] LABS: Albumin 3.8 g/dL (3.2-4.8); Alkaline Phosphatase 87 U/L (46-116); Anion Gap 6 (5-15); Aspartate Aminotransferase 12 U/L (13-40); BUN/Creatinine Ratio 16.2 (10.0-20.0); Blood Urea Nitrogen 16 mg/dL (9-23); Calcium 9.2 mg/dL (8.7-10.4); Carbon Dioxide 29 mmol/L (20-31); Chloride 108 mmol/L (98-107); Cholesterol 175 mg/dL (< 200); Glucose 104 mg/dL (74-106); HDL Cholesterol 43 mg/dL (40-59); LDL Cholesterol 111 mg/dL (< 100); Potassium 3.9 mmol/L (3.5-5.1); Sodium 143 mmol/L (136-145); Triglycerides 95 mg/dL (< 150)
[2024-07-02 17:04] LABS: Bilirubin, Total 0.7 mg/dL (0.2-1.0); Total Protein 6.7 g/dL (5.7-8.2)
[2024-07-02 17:07] LABS: Alanine Aminotransferase < 9 U/L (7-40)
== END | disposition home or self-care (01) ==
LOC: LAB 16:16
PROVIDERS: ATTEND Internal Medicine
DX: I12.9 Hypertensive chronic kidney disease with stage 1 through stage 4 chronic kidney disease, or unspecified chronic kidney disease (principal); E11.22 Type 2 diabetes mellitus with diabetic chronic kidney disease; N18.2 Chronic kidney disease, stage 2 (mild); E11.69 Type 2 diabetes mellitus with other specified complication
CPT/HCPCS: 36415; 80053; 80061; 82306; 82607; 83036; 84443; 85025